=== PATIENT | male | born 1955 | race Caucasian/White ===

== ENCOUNTER 2019-07-25 23:40 | Inpatient (IN) | payer MEDICAID, MEDICARE ==
[~2019-07-25] VITALS: Ht 180.3 cm; Wt 93.9 kg
[2019-07-26] VITALS (7 sets, daily range): BP systolic 112–146
--- NOTE | 2019-07-26 00:10 | NUR ---
Placed in room 6 . Placed on engineering technician parking, blood pressure machine and pulse oximeter. To gown for exam. Side rails up. Report given to ARNOLD SINGH.
--- NOTE | 2019-07-26 00:12 | NUR ---
ER at bedside examining patient.
--- NOTE | 2019-07-26 00:15 | NUR ---
Pt came in via ambulance with a complaint of abdominal pain, chest tightness and vomiting. No other complaints noted. Vital signs stable. Safety precaution observed. Wound on the right lef noted wrapped with bandage. Has history of stroke, hypertension and hyperlipidemia. Will continue to monitor Pt.
--- NOTE | 2019-07-26 00:20 | NUR ---
ALFONSO Pereira at bedside for medical evaluation.
[2019-07-26 00:49] LABS: HEMOGLOBIN 15.5 g/dL (14.0-18.0); MEAN CORPUSCULAR HEMOGLOBIN 30 pg (27-31); MEAN CORPUSCULAR HGB CONC 32 % (32-36); MEAN CORPUSCULAR VOLUME 92 fL (79.0-98.0); PLATELET COUNT (AUTO) 158 K/uL (130-430); RED CELL DISTRIBUTION WIDTH 18.7 % (9.0-15.0); WHITE BLOOD COUNT (AUTO) 12.2 K/uL (4.8-10.8)
[2019-07-26] MEDS ORDERED: NACL 0.9% 1,000 ML IV ONE (00:58)
[2019-07-26] MEDS ORDERED: ONDANSETRON HCL 4 MG/2 ML VIAL IVP ONE (01:00)
[2019-07-26] MEDS ORDERED: MORPHINE 4 MG/ML INJ. SYRINGE IVP ONE (01:00)
[2019-07-26] MEDS ORDERED: DIPHENHYDRAMINE INJ 50 MG/ML VIAL IVP ONE (01:00)
[2019-07-26] MEDS ORDERED: PANTOPRAZOLE SODIUM 40 MG/VIAL (PROTONIX) IVP ONE (01:00)
--- NOTE | 2019-07-26 01:00 | NUR ---
Pt in bed, no acute distress noted. Will continue to monitor Pt.
[2019-07-26 01:12] LABS: CALCIUM 8.3 mg/dL (8.4-11.0); CREATININE 1.25 mg/dL (0.55-1.30); POTASSIUM 5.7 mmol/L (3.5-5.1)
[2019-07-26 01:16] LABS: ATYPICAL LYMPHOCYTES % 0 % (0-0); BAND % (MANUAL) 0 % (0-6); BASOPHILS % (MANUAL) 0 % (0-2); EOSINOPHILS % (MANUAL) 0 % (0-7); LYMPHOCYTES % (MANUAL) 4 % (20-46); MONOCYTES % (MANUAL) 4 % (0-11)
[2019-07-26 01:24] LABS: ALBUMIN 3.4 g/dL (3.4-4.8); TOTAL BILIRUBIN 1.7 mg/dL (0.0-1.0)
[2019-07-26] MEDS ORDERED: ASPIRIN 81 MG TAB.CHEW PO ONE (02:15)
--- NOTE | 2019-07-26 02:42 | NUR ---
To CT Pt stable.
--- NOTE | 2019-07-26 03:00 | NUR ---
Pt in bed, no acute distress noted. Will continue to monitor Pt.
[2019-07-26 03:06] LABS: INR 1.1 (0.80-1.20); PROTHROMBIN TIME 10.9 SECS (9.5-12.5)
[2019-07-26] MEDS ORDERED: GABA-531 PO (04:26)
[2019-07-26] MEDS ORDERED: WARF4TAB2 PO (04:31)
[2019-07-26] MEDS ORDERED: ALLO100T PO (04:31)
[2019-07-26] MEDS ORDERED: SPIR25TA6 PO (04:31)
[2019-07-26] MEDS ORDERED: CARV3.1246 PO (04:31)
[2019-07-26] MEDS ORDERED: LISI10TA5 PO (04:31)
[2019-07-26] MEDS ORDERED: FURO-149 PO (04:31)
[2019-07-26] MEDS ORDERED: SIMV40TA2 PO (04:31)
--- NOTE | 2019-07-26 04:47 | NUR ---
ADMISSION: The patient, ARLETH CARLOS, 63 y/o, M admitted by DR. GOEL WITH THE DIAGNOSIS OF NSTEMI TO ROOM 118 B , was given written information regarding hospital policies, unit procedures and contact persons.
--- NOTE | 2019-07-26 04:50 | NUR ---
Patient will be admitted to care of Dr. Murray. Admitted to telemetry unit. Will go to room 118b. Belongings list completed. Complete and up to date summary report printed. SBAR report to be given at bedside with opportunity for questions.
--- NOTE | 2019-07-26 06:35 | NUR ---
Pt is awake and resting comfortably in bed. All pt's needs were attended to. Fall and safety precautions are in place. Will endorse to day shift nurse.
[2019-07-26] MEDS ORDERED: MORPHINE 2 MG/ML INJ. SYRINGE IVP PRN (07:30)
[2019-07-26] MEDS ORDERED: *LOVENOX 1MG/KG Q12H/PHARMACY XX PRN (07:30)
[2019-07-26] MEDS ORDERED: MORPHINE 4 MG/ML INJ. SYRINGE IVP PRN (07:30)
--- NOTE | 2019-07-26 07:30 | NUR ---
Pt's home medications were given to the Pharmacist. Stickers placed on pt's chart and SBAR. Endorsed to day shift nurse.
--- NOTE | 2019-07-26 08:30 | NUR ---
RN INITIAL NOTES RECEIVED PATIENT IN BED ALERT AWAKE AND NO DISTRESS , PATIENT NO SIGN OF SOB , PATIENT STATED STILL WITH ABDOMINAL DISCOMFORT , PATIENT SEEN AND DISCUSSED PLAN OF CARE BY GI DR , PATIENT OK TO EAT BREAKFAST FOR NOW AND WILL FOLLOW UP WITH DR LAUGHLIN FOR CARDIAC CLEARANCE ONCE CLEARED PATIENT WILL POSSIBLE TO HAVE EGD LATE THIS AFTERNOON PER DR PACE, CHARGE NURSE MADE AWARE, PATIENT MADE AWARE.
--- NOTE | 2019-07-26 08:31 | NUR ---
CONSULTATION PAGED/CALLED Reason for Consultation: [] ABDOMINAL PAIN Person Who was Notified: [] TIANA/DR PACE Consulting Physician: [] DR PACE Level Designer Specialty: [] GI Ordering Physician: [] DR Louann CONTRERAS
--- NOTE | 2019-07-26 08:36 | NUR ---
CONSULTATION PAGED/CALLED Reason for Consultation: [] NSTEMI Person Who was Notified: [] CHETAN/DR LAUGHLIN Consulting Physician: [] DR LAUGHLIN Tuberculosis Specialist Specialty: [] GI Ordering Physician: [] DR Louann CONTRERAS
--- NOTE | 2019-07-26 08:41 | NUR ---
CORRECTION: CARDIOLOGY NOT GI
[2019-07-26] MEDS ORDERED: LISINOPRIL 10 MG TABLET (PRINIVIL) PO SCH (09:00)
[2019-07-26] MEDS ORDERED: SPIRONOLACTONE 25 MG TABLET (ALDACTONE) PO SCH (09:00)
--- NOTE | 2019-07-26 09:31 | NUR ---
EGD PATIENT INFORMED NPO FOR LUNCH POSSIBLE EGD THIS AFTERNOON , PATIENT UNDERSTOOD
[2019-07-26 09:37] LABS: BASOPHILS # (AUTO) 0.1 K/uL (0.0-0.2); BASOPHILS % (AUTO) 0.6 % (0.0-2.0); EOSINOPHILS # (AUTO) 0.1 K/uL (0.0-0.4); EOSINOPHILS % (AUTO) 0.6 % (0.0-4.0); HEMATOCRIT 46.4 % (36-54); LYMPHOCYTES # (AUTO) 0.2 K/uL (1.0-5.5); LYMPHOCYTES % (AUTO) 2.6 % (20.5-51.5); MEAN CORPUSCULAR HEMOGLOBIN 30 pg (27-31); MEAN CORPUSCULAR HGB CONC 32 % (32-36); MEAN CORPUSCULAR VOLUME 92 fL (79.0-98.0); MONOCYTES # (AUTO) 0.3 K/uL (0.0-1.0); MONOCYTES % (AUTO) 3.7 % (1.7-9.3); NEUTROPHILS # (AUTO) 8.7 K/uL (1.8-7.7); NEUTROPHILS % (AUTO) 92.5 % (40.0-70.0); PLATELET COUNT (AUTO) 154 K/uL (130-430); RED BLOOD CELL COUNT(AUTO) 5.05 MIL/uL (4.2-6.2); RED CELL DISTRIBUTION WIDTH 18.9 % (9.0-15.0); WHITE BLOOD COUNT (AUTO) 9.4 K/uL (4.8-10.8)
[2019-07-26 09:56] LABS: ALBUMIN 2.9 g/dL (3.4-4.8); CALCIUM 7.3 mg/dL (8.4-11.0); CREATININE 1.59 mg/dL (0.55-1.30); POTASSIUM 5.6 mmol/L (3.5-5.1); TOTAL BILIRUBIN 1.9 mg/dL (0.0-1.0)
--- NOTE | 2019-07-26 10:12 | NUR ---
CARDIOLOGY /DR PACE PATIENT REFERRED TO DR LAUGHLIN INFORMED THAT EGD IS PLANNED FOR THIS AFTERNOON AFTER HE IS BEING CLEARED FROM CARDIOLOGY AND MD SAID HE WILL SEE THE PATIENT , REPORTED WITH TROPONIN LEVEL , PAGED DR PACE FOR THE CT OF THE ABDOMEN/ PELVIS RESULT , AWAITING FOR THE MD TO CALL BACK
[2019-07-26] MEDS: GABAPENTIN 300 MG CAPSULE PO SCH ×2 (10:36→20:57)
[2019-07-26] MEDS: ASPIRIN 81 MG TAB.CHEW PO SCH (10:37)
[2019-07-26] MEDS: SIMVASTATIN 40 MG TABLET PO SCH (10:37)
[2019-07-26] MEDS: CARVEDILOL 3.125 MG TABLET (COREG) PO SCH ×2 (10:38→20:57)
[2019-07-26] MEDS: FUROSEMIDE 40 MG TABLET PO SCH (10:38)
[2019-07-26] MEDS: metroNIDAZOLE 500 mg/NS 100 ML IV SCH ×3 (10:39→21:26)
[2019-07-26] MEDS: cefTRIAXone 1 GM IVPB PREMIX 50 ML IV SCH (10:40)
[2019-07-26] MEDS: ENOXAPARIN SODIUM 100 MG/ML SYRINGE SUBCUT SCH ×2 (10:45→21:23)
[2019-07-26] MEDS: ALLOPURINOL 100 MG TABLET (ZYLOPRIM) PO SCH (10:50)
--- NOTE | 2019-07-26 10:52 | NUR ---
DR PACE /CT OF THE PELVIS /ABDOMEN RESULT DR PACE RETURNED CALL INFORMED AND READ TO HIM CT OF THE ABDOMEN/PELVIS RESULT AND PER MD WILL CONT WITH IV ATB ORDERED MORE LIKELY PATIENT TO BE TREATED WITH GASTROENTERITIS, INFORMED DR PACE THAT PATIENT IS HIGH RISK FOR ANY SURGERY A TTIS TIME , DR PACE SAID NO EGD FOR THIS PATIENT , INFORMED PATIENT AND AAWRE OF HIS DIAGNOSTIC , NO EGD , CHARGE NURSE MADE AWARE
--- NOTE | 2019-07-26 11:00 | NUR ---
MO TROPONIN DR LAUGHLIN AWARE OF THE MO TROPONIN RESULT AND THE EJECTION FRACTION OF 20- 25% . PATIENT ALREADY ON LOVENOX ORDER BY DR LAUGHLIN
[2019-07-26] MEDS ORDERED: FURO20TA4 PO (11:02)
[2019-07-26] MEDS ORDERED: INSU100V9 SQ (11:02)
--- NOTE | 2019-07-26 12:30 | NUR ---
NPO/ PAGED DR LAUGHLIN FOR INSULIN SLIDING SCALE PAGED DR LAUGHLIN TO VERIFY [PATIENT INSULIN SLIDING SCALE , MD ORDERED BS CHECK BUT NO SLIDING SCALE COVERAGE INFORMED CHARGE NURSE. WAITING FOR MD TO CALL BACK
--- NOTE | 2019-07-26 13:00 | NUR ---
DCPA and SS contact CIGAR HEAD STRINGER met with Pt. at bedside for DCPA and SS contact. Pt. was alert and oriented, was admitted to [facility] for segment myocardial infraction. Pt. supports himself through SSI, he is currently living in his car, in addition to utilizing winter shelters. He was residing at [facility] and his car is parked there. Person to notify is his sister Annalee Wilson who lives in [place] . Pt. garcia [place] [employer] and Medicare Part B only. PCP is Dr. Jones, he has a keycase assembler through [facility] [phone]. He utilizes a walker for mobility and tends to his own ADLs, he reported he also needs a replacement nebulizer pump. Pt. is diabetic and had a stroke a year ago. Pt. reported that he was in a SNF, does not recall the name in [place] approximately 2 months ago, he does not want to go to a SNF again they take everything from your check and I left because it was loud and I couldnt sleep. He prefers to live in his car and in connected to homeless jail and [facility]. CIGAR HEAD STRINGER provided him with homeless resources list for additional info and support. DCP is to return home at previous level of functioning. DCP/CM/SS will remain available as needed.
--- NOTE | 2019-07-26 14:24 | NUR ---
AUT[employer] FINANCE SALES REP DR LAUGHLIN WAS CALLED, RE: ORDERED ACCUCHECK BUT NEEDS BS SS. SPOKE TO OFFICE.
--- NOTE | 2019-07-26 14:25 | NUR ---
ROUNDS PATIENT AMBULATORY AND PAGED DR LAUGHLIN AGAIN FOR SLIDING SCALE OF INSULIN PER PATIENT HE TAKES HUMALOG Addendum: 07/26/19 at 1432 by Kylee Aguirre RN VERIFIED WITH FATIMAH GREGORY PATIENT ALLERGY TO METOPROLOL BUT TAKING COREG , PER COLT PATIENT COREG IS HOME MEDS , PATIENT TAKING IT , NO AR NOTED , PER PATIENT HES BEEN TAKING THIS MEDS FOR A LONG TIME
--- NOTE | 2019-07-26 14:40 | NUR ---
SLIDING SCALE DR LAUGHLIN CALLED BACK AND STATED TO CALL DR GOEL FOR THE SLIDING SCALE COVERAGE ORDER, PAGED DR GOEL WAITNG FOR RETURN CALL
--- NOTE | 2019-07-26 16:15 | NUR ---
ROUNDS PATIENT SITTING IN HIS BED , NO DISTRESS, HE IS TALKING TO SOMEONE ON HIS PHONE DENIES ANY PAIN
--- NOTE | 2019-07-26 16:35 | NUR ---
WOUND EVALUATION: Wound Consult received from Dr. Murray. Thank you, Dr. Murray, for the consult. Patient received in a Baldwin Bed with an Atmo-Air 9000 mattress, awake, alert, and oriented. Patient is able to turn in bed independently. Yobani Score is a 19. Past Medical History: CVA, Diabetes Mellitus, Atrial Fibrillation, Chronic Obstructive Pulmonary Disease, pacemaker, AICD, Cholecystectomy, knee surgery. Recent Labs: WBC 9.4, RBC 5.05, hemoglobin 15.0, hematocrit 46.4, potassium 5.6, BUN 73, creatinine 1.59, GFR 47, glucose 300, calcium 7.3, serum total protein 6.0, albumin 2.9, PTT 25.1. Chronic biologic: Blood culture results 2 in progress. MRSA screen results in progress. Intrinsic factors that delay wound healing: Diabetes Mellitus, Chronic Obstructive Pulmonary Disease, Hypoalbuminemia. Extrinsic factors that delay wound healing: Decreased mobility. Wound Assessment: 1. Left Lower Extremity: Dry skin with hemosiderin staining, cool to touch. No edema. No odor, no drainage. Present on admission. 2. Right Lower Extremity: Dry skin with hemosiderin staining, cool to touch. No edema. No odor, no drainage. Present on admission. Recommend: Cleanse extremities with mild soap and water. Pat dry. Apply Eucerin cream to extremities. Perform site care twice a day. 3. Right lateral mid lower extremity: Chronic wound, present on admission. Wound bed has 100% brown scab. No odor, no drainage. Dry, stable. Measures 0.7 cm x 0.5 cm. 4. Right lateral mid lower extremity, inferior to site 3: Three small chronic wounds, present on admission. Wound beds have 100% brown scabs. No odor, no drainage. Dry, stable. Three grouped wounds measure 1.8 cm x 0.6 cm. Recommend: No dressings needed. Continue to monitor wound sites each shift. Contact wound care nurse if sites open or drain. Also recommend: Encourage and assist patient as needed with repositioning every 2 hours with pillow support and off-load pressure areas with pillows for pressure re-distribution. Offload, elevate and float bilateral heels with pillows. Perform skin care and monitor skin integrity Q shift.
[2019-07-26] MEDS ORDERED: WARFARIN SODIUM 5 MG TABLET PO SCH (18:00)
--- NOTE | 2019-07-26 18:02 | NUR ---
ENDORSEMENT PATIENT WILL CONT PLAN OF CARE, AMBULATES AND COUMADIN STARTED , NO CHEST PAIN Addendum: 07/26/19 at 1858 by Kylee Aguirre RN WILL FOLLOW UP CALL TO DR MANDUJANO TO VERIFY PATIENT SLIDING SCALE FOR HUMALOG ORDER
--- NOTE | 2019-07-26 19:20 | NUR ---
OPENING NOTES Pt is AAOx4, lying in bed. Pt on saline lock on right forearm G22. No complains of pain or discomfort at this time. No signs of acute distress or SOB noted. Encouraged to use call light when needed. Safety precautions in place with 2 side rails up, wheels locked, and bed in lowest level. Call light with pt. Will continue to monitor.
--- NOTE | 2019-07-26 20:15 | NUR ---
SPOKE TO DR. CONTRERAS Spoke to Dr. Contreras regarding pt has no insulin sliding scale and pt states he takes Humalog at home. She asked her last blood glucose and told her it was 174mg/dl. MD said not to give any insulin coverage tonight and she will decide about the insulin coverage tomorrow. Will carry out.
--- NOTE | 2019-07-26 20:26 | NUR ---
ROUNDS All due meds given and pt tolerated well. No complains of pain and no signs of acute distress noted. Safety precautions in place and call light with pt. Will continue to monitor. Addendum: 07/27/19 at 0357 by Keturah Dias RN DISREGARD ENTRY. WRONG TIME.
[2019-07-26] MEDS: EMOLLIENT COMBINATION NO.73 78 GM CREAM..G. TP SCH (20:58)
--- NOTE | 2019-07-26 21:26 | NUR ---
ROUNDS All due meds given and pt tolerated well. No complains of pain and no signs of acute distress noted. Safety precautions in place and call light with pt. Will continue to monitor.
--- NOTE | 2019-07-26 23:30 | NUR ---
ROUNDS Pt is resting in bed with both eyes closed, with visible chest rise and fall with non-labored breathing noted. No signs of acute distress or SOB noted. Safety precautions in place and call light with pt. Will continue to monitor.
[2019-07-27 00:30] VITALS: BP_SYST 116
[2019-07-27] MEDS: ONDANSETRON HCL 4 MG/2 ML VIAL IVP PRN ×4 (01:57→22:23)
--- NOTE | 2019-07-27 02:26 | NUR ---
SPOKE TO DR. CONTRERAS Spoke to Dr. Contreras regarding pt complaining of anxiety and told her pt states he takes Ativan 1mg PO at home. Told her I checked med rec for home meds but it was not entered. Dr. Contreras ordered Ativan 1mg PO one time. Read back order and will carry out.
[2019-07-27] MEDS ORDERED: LORazepam 1 MG TABLET PO ONE (02:30)
[2019-07-27 03:24] VITALS: BP_SYST 130
--- NOTE | 2019-07-27 03:26 | NUR ---
ATIVAN Pt complaining of anxiety and asking for ativan. BP checked and recorded. Ativan 1mg PO one time given. No signs of acute distress noted. Safety precautions in place and call light with pt. Will continue to monitor.
[2019-07-27] MEDS: metroNIDAZOLE 500 mg/NS 100 ML IV SCH ×3 (05:05→21:32)
[2019-07-27 05:54] LABS: INR 1.2 (0.80-1.20); PROTHROMBIN TIME 12.2 SECS (9.5-12.5)
[2019-07-27 06:11] LABS: ALBUMIN 2.5 g/dL (3.4-4.8); CALCIUM 7.2 mg/dL (8.4-11.0); CREATININE 1.43 mg/dL (0.55-1.30); POTASSIUM 4.9 mmol/L (3.5-5.1); THYROID STIMULATING HORMONE 0.73 uIu/mL (0.36-3.74); TOTAL BILIRUBIN 1.1 mg/dL (0.0-1.0)
--- NOTE | 2019-07-27 06:26 | NUR ---
CLOSING NOTES Pt is resting in bed with both eyes closed, with visible chest rise and fall with non-labored breathing noted. No complains of pain at this time. No signs of acute distress or SOB noted. All needs attended throughout the shift. Safety precautions maintained with 2 side rails up, wheels locked, and bed at lowest level. Call light with pt. Will endorse to day shift nurse.
[2019-07-27 06:35] LABS: HEPATITIS A AB, IgM Negative (Negative); HEPATITIS B CORE AB, IgM Negative (Negative); HEPATITIS B SURFACE AG Negative (Negative)
[2019-07-27 06:38] LABS: BASOPHILS % (AUTO) 0.5 % (0.0-2.0); EOSINOPHILS # (AUTO) 0.1 K/uL (0.0-0.4); EOSINOPHILS % (AUTO) 2.4 % (0.0-4.0); HEMATOCRIT 41.4 % (36-54); HEMOGLOBIN 13.4 g/dL (14.0-18.0); LYMPHOCYTES # (AUTO) 0.6 K/uL (1.0-5.5); LYMPHOCYTES % (AUTO) 10.6 % (20.5-51.5); MEAN CORPUSCULAR HEMOGLOBIN 30 pg (27-31); MEAN CORPUSCULAR HGB CONC 32 % (32-36); MEAN CORPUSCULAR VOLUME 93 fL (79.0-98.0); MONOCYTES # (AUTO) 0.3 K/uL (0.0-1.0); MONOCYTES % (AUTO) 6.4 % (1.7-9.3); NEUTROPHILS # (AUTO) 4.2 K/uL (1.8-7.7); NEUTROPHILS % (AUTO) 80.1 % (40.0-70.0); PLATELET COUNT (AUTO) 121 K/uL (130-430); RED BLOOD CELL COUNT(AUTO) 4.43 MIL/uL (4.2-6.2); RED CELL DISTRIBUTION WIDTH 19.4 % (9.0-15.0)
--- NOTE | 2019-07-27 07:13 | NUR ---
SPOKE TO DR. GEORGE Spoke to Dr. George regarding pt's critical lab of 0.117. He said "okay" and no new orders were given.
[2019-07-27 07:28] LABS: WHITE BLOOD COUNT (AUTO) 5.2 K/uL (4.8-10.8)
[2019-07-27 08:42] VITALS: BP_SYST 128
[2019-07-27] MEDS: ASPIRIN 81 MG TAB.CHEW PO SCH (08:48)
[2019-07-27] MEDS: GABAPENTIN 300 MG CAPSULE PO SCH ×2 (08:48→20:30)
[2019-07-27] MEDS: SIMVASTATIN 40 MG TABLET PO SCH (08:48)
[2019-07-27] MEDS: FUROSEMIDE 40 MG TABLET PO SCH (08:48)
[2019-07-27] MEDS: ALLOPURINOL 100 MG TABLET (ZYLOPRIM) PO SCH (08:48)
[2019-07-27] MEDS: CARVEDILOL 3.125 MG TABLET (COREG) PO SCH ×2 (08:48→20:30)
[2019-07-27] MEDS: ENOXAPARIN SODIUM 100 MG/ML SYRINGE SUBCUT SCH ×2 (08:50→20:33)
[2019-07-27] MEDS: PANTOPRAZOLE SODIUM 40 MG/VIAL (PROTONIX) IVP SCH (08:50)
[2019-07-27] MEDS: cefTRIAXone 1 GM IVPB PREMIX 50 ML IV SCH (08:52)
[2019-07-27] MEDS: EMOLLIENT COMBINATION NO.73 78 GM CREAM..G. TP SCH ×2 (09:04→20:29)
[2019-07-27] MEDS: IPRATROPIUM/ALBUTEROL SULFATE 3 ML AMPUL.NEB (DUONEB) INH SCH ×3 (11:10→20:40)
[2019-07-27 12:30] VITALS: BP_SYST 137
[2019-07-27 16:20] VITALS: BP_SYST 133
[2019-07-27] MEDS: WARFARIN SODIUM 7.5 MG TABLET PO SCH (17:28)
[2019-07-27] MEDS ORDERED: WARFARIN SODIUM 7.5 MG TABLET PO ONE (18:00)
--- NOTE | 2019-07-27 18:38 | NUR ---
Patient is sitting in bed watching movie, [employer]. He tolerates his meals without vomiting. Says he does notice nausea. Took two doses of zofran this shift. Patient has even unlabored respirations. Will endorse care to next registered nurse. Palmer Garza RN
--- NOTE | 2019-07-27 19:29 | NUR ---
OPENING NOTES Pt is AAOx4, sitting in bed while watching tv. Pt on saline lock on right forearm G22. No complains of pain or discomfort at this time. No signs of acute distress or SOB noted. Encouraged to use call light when needed. Safety precautions in place with 2 side rails up, wheels locked, and bed in lowest level. Call light with pt. Will continue to monitor.
[2019-07-27 20:28] VITALS: BP_SYST 124
--- NOTE | 2019-07-27 23:21 | NUR ---
SPOKE TO DR. CONTRERAS Spoke to Dr. Contreras regarding pt been asking to shower despite explaining to pt his telemetry. Also told Dr. Contreras about pt's ejection fraction of 15-20%. Dr. Contreras said pt can shower as long as pt will be assisted to prevent falls. Also told Dr. Contreras that pt have been coughing and asking for cough syrup, she ordered Robitussin 200mg/10ml PO every 4 hours PRN. Read back orders and will carry out.
[2019-07-27] MEDS ORDERED: guaiFENesin 200 MG/10 ML UDC PO PRN (23:30)
[2019-07-27] MEDS: guaiFENesin 200 MG/10 ML UDC PO PRN (23:48)
--- NOTE | 2019-07-28 00:10 | NUR ---
SHOWER Pt was assisted to the shower room, pt ambulated with a walker. Pt refused to be assisted inside. Educated on safety precautions and fall, pt verbalized understanding and always talking angrily.
[2019-07-28] MEDS: IPRATROPIUM/ALBUTEROL SULFATE 3 ML AMPUL.NEB (DUONEB) INH SCH ×7 (00:38→23:00)
[2019-07-28 00:45] VITALS: BP_SYST 136
--- NOTE | 2019-07-28 00:47 | NUR ---
BACK IN ROOM Assisted pt back to room via shower chair and assisted back to bed. Pt tolerated well. No complains of pain and no signs of acute distress or SOB noted. Vital signs taken and recorded. Safety precautions in place and call light with pt. Will continue to monitor.
--- NOTE | 2019-07-28 03:26 | NUR ---
ROUNDS Pt is resting in bed with both eyes closed, with visible chest rise and fall with non-labored breathing noted. Pt is easily arousable. No signs of acute distress or SOB noted. No needs at this time. Safety precautions in place and call light with pt. Will continue to monitor.
[2019-07-28] MEDS: guaiFENesin 200 MG/10 ML UDC PO PRN ×2 (04:05→20:26)
--- NOTE | 2019-07-28 05:07 | NUR ---
SPOKE TO DR. CONTRERAS Spoke to Dr. Contreras regarding pt asking for ativan and is angry and anxious at this time. Dr. Contreras ordered Ativan 1mg IVP one time dose. Read back order and will carry out.
[2019-07-28] MEDS ORDERED: LORazepam 2 MG/ML VIAL IVP ONE (05:15)
[2019-07-28 05:19] VITALS: BP_SYST 131
[2019-07-28] MEDS: metroNIDAZOLE 500 mg/NS 100 ML IV SCH ×3 (05:22→22:55)
[2019-07-28 06:28] LABS: INR 1.4 (0.80-1.20); PROTHROMBIN TIME 13.6 SECS (9.5-12.5)
--- NOTE | 2019-07-28 07:25 | NUR ---
Opening Note received bedside SBAR report from shiftman RN, patient resting in bed, respirations even and unlabored, no acute distress noted, patient denies any chest pain or shortness of breath, educated patient on use of call light and asked to call for assistance, patient verbalized understanding, call light in reach, educated patient on use of bed alarm for patient safety, patient refusing bed alarm, bed in low and locked position.
--- NOTE | 2019-07-28 07:30 | NUR ---
Physician Rounds Dr. Us at bedside examining patient.
[2019-07-28 08:00] VITALS: BP_SYST 120
--- NOTE | 2019-07-28 08:35 | NUR ---
Physician Rounds Dr. Jones at bedside examining patient.
[2019-07-28] MEDS: EMOLLIENT COMBINATION NO.73 78 GM CREAM..G. TP SCH ×2 (08:56→20:30)
[2019-07-28] MEDS: cefTRIAXone 1 GM IVPB PREMIX 50 ML IV SCH (08:56)
[2019-07-28] MEDS: PANTOPRAZOLE SODIUM 40 MG/VIAL (PROTONIX) IVP SCH (08:56)
[2019-07-28] MEDS: ENOXAPARIN SODIUM 100 MG/ML SYRINGE SUBCUT SCH ×2 (08:57→20:40)
[2019-07-28] MEDS: SIMVASTATIN 40 MG TABLET PO SCH (08:57)
[2019-07-28] MEDS: CARVEDILOL 3.125 MG TABLET (COREG) PO SCH ×2 (08:57→20:30)
[2019-07-28] MEDS: LORazepam 1 MG TABLET PO PRN ×2 (08:58→22:55)
[2019-07-28] MEDS: FUROSEMIDE 40 MG TABLET PO SCH (08:58)
[2019-07-28] MEDS: GABAPENTIN 300 MG CAPSULE PO SCH ×2 (08:58→20:26)
[2019-07-28] MEDS: ASPIRIN 81 MG TAB.CHEW PO SCH (08:58)
[2019-07-28] MEDS: ALLOPURINOL 100 MG TABLET (ZYLOPRIM) PO SCH (08:58)
--- NOTE | 2019-07-28 10:20 | NUR ---
Called Pharmacy called pharmacy, informed them that patient has orders for bactroban at 0900, informed them that bactroban is not yet available in medication room, per pharmacy they will send over bactroban, will administer as soon as medication is available.
--- NOTE | 2019-07-28 10:58 | NUR ---
RN Rounds patient resting in bed, respirations even and unlabored on room air, no acute distress noted, patient reports anxiety is controlled at this time.
[2019-07-28] MEDS: MUPIROCIN 2% TOPICAL OINTMENT 22 GM NS SCH ×2 (11:42→20:30)
--- NOTE | 2019-07-28 12:20 | NUR ---
RN Rounds patient resting in bed, respirations even and unlabored, patient denies any pain, no acute distress noted.
[2019-07-28 12:47] VITALS: BP_SYST 109
--- NOTE | 2019-07-28 13:05 | NUR ---
Bathroom bed alarm heard, patient attempting to get out of bed, patient did not use call light, patient states "I need to go to the bathroom", assisted patient to bathroom, voided x1, assisted patient back to bed, bed in low and locked position, bed alarm on, call light in reach.
--- NOTE | 2019-07-28 13:45 | NUR ---
Snack patient requesting smoothie, called dietary, smoothie brought in for patient, patient sitting up in bed eating snack, bed in low and locked position, bed alarm on, call light in reach.
--- NOTE | 2019-07-28 14:20 | NUR ---
Snack patient requesting nehemiah melt, called dietary, nehemiah melt brought to patient from dietary, patient sitting up in bed eating, no acute distress noted, patient denies any pain or shortness of breath, O2Sat 93% on room air.
[2019-07-28] MEDS: ONDANSETRON HCL 4 MG/2 ML VIAL IVP PRN (14:32)
--- NOTE | 2019-07-28 14:39 | NUR ---
Case mgt: I faxed SNF orders to [facility] at fax#[phone]--s/w Jessica , assistant case manager at [facility] [phone] (she's covering the weekend). Per Jessica, pt was reluctant to go to SNF--I met w/pt at bedside, explained that MD has ordered physical therapy and continued IV antibiotics. Pt is agreeable to go to SNF but not to the one in [place] ([facility]?) and he asked if he can go to [facility] in [place]. I left message for Jessica re this info. ROGER RN
--- NOTE | 2019-07-28 15:23 | NUR ---
Spoke with Physician spoke with Dr. Jones, informed him that patient has fingerstick blood glucose checks but no sliding scale insulin orders, new medication orders received, verified with telephone read back.
[2019-07-28 16:05] VITALS: BP_SYST 127
--- NOTE | 2019-07-28 16:05 | NUR ---
[place] heel caser Jessica called me [phone]--she is looking for a SNF and is aware pt refuses [facility] in [facility]--Jessica will f/u with our nursing station..ROGER RN
--- NOTE | 2019-07-28 16:40 | NUR ---
Bathroom bed alarm heard, patient attempting to get out of bed, assisted patient to ambulate to the bathroom, patient voided x1, assisted patient back to bed, patient resting in bed, no acute distress noted, provided patient with fresh water, bed alarm on, bed in low and locked position, call light in reach.
[2019-07-28] MEDS: INSULIN REGULAR, HUMAN 100 UNITS/ML, 10 ML VIAL (humuLIN R) SUBCUT PRN ×2 (17:15→20:42)
[2019-07-28] MEDS: WARFARIN SODIUM 7.5 MG TABLET PO SCH (17:16)
--- NOTE | 2019-07-28 18:06 | NUR ---
RN Rounds patient sitting up in bed eating dinner, tolerating well, no acute distress noted, patient reports nausea is controlled, bed in low and locked position, bed alarm on, call light in reach.
--- NOTE | 2019-07-28 18:52 | NUR ---
Discharge Planning spoke with Jessica from [facility], per Jessica she needs orders for nebulizer pump faxed to , per Jessica bed will not be available for tonight, informed Jessica that nebulizer pump orders will be obtained and then faxed, charge histotechnologist aware, will endorse to shift lab technician RN to obtain physician orders.
--- NOTE | 2019-07-28 19:17 | NUR ---
Closing Note bedside SBAR report given to receiving RN, patient resting in bed, respirations even and unlabored on room air, no acute distress noted, patient denies any pain, educated patient on use of call light and asked to call for assistance, patient verbalized understanding, call light in reach, bed in low and locked position, bed alarm on, care endorsed to petroleum transport driver RN.
--- NOTE | 2019-07-28 19:30 | NUR ---
Opening notes Received report. Patient is resting in bed, wanting cough medicine. Will administer. No signs of distress noted. Breathing even and unlabored, with wheezes, but patient refuses breathing treatments. IV patent and intact, no signs of infiltration noted. No other needs. Call light with the patient. Bed locked and in the lowest position. Bed alarm on.
[2019-07-28 20:00] VITALS: BP_SYST 122
[2019-07-28] MEDS: INSULIN GLARGINE 100 UNITS/ML 10 ML VIAL SQ SCH (20:41)
--- NOTE | 2019-07-28 20:45 | NUR ---
Medications Patient angry that he has not received his medications. Due medications given. Patient states he should be receiving 2 capsules of gabapentin and 2 Ativan. Patient yelling angrily. Will inform doctor. Call light with the patient. Patient refused bed alarm at this time. Bed locked and in the lowest position.
--- NOTE | 2019-07-28 22:30 | NUR ---
Spoke to Dr. Nelson and ordered Gabapentin 600 mg BID stating tomorrow. One dose of gabapentin 300 mg to be given now. Also informed MD about nebulizer pump for discharge and stated to input orders.
[2019-07-28] MEDS ORDERED: GABAPENTIN 300 MG CAPSULE PO SCH (22:45)
--- NOTE | 2019-07-28 22:45 | NUR ---
Outside pharmacy Gabapentin not verified by pharmacy. Outside pharmacy not answering phone calls after 4 attempts. Call goes straight to voicemail. Will continue to call pharmacy.
--- NOTE | 2019-07-28 23:15 | NUR ---
Patient moved to 118B Patient moved self to 118B stating "I like this bed, I can't stand being over there." Informed patient due to safety reasons, it would be much more safer and practical for patient to be in A bed which is closer to the bathroom as patient is also unsteady. Patient refuses. Call light with the patient. Bed alarm is on. Bed locked and in the lowest position.
[2019-07-29 00:38] VITALS: BP_SYST 129
[2019-07-29] MEDS ORDERED: ALBUTEROL MDI INHALATION 8 GM INH INH PRN (01:15)
--- NOTE | 2019-07-29 01:24 | NUR ---
Nebulizer pump order faxed to [phone]. Confirmation receipt received.
--- NOTE | 2019-07-29 01:30 | NUR ---
In and out of bed Patient getting out of bed without calling for help. Patient needs attended. Patient still making rude comments and yelling abruptly. Patient needs provided. Call light with the patient. Patient refuses bed alarm on.
[2019-07-29] MEDS: IPRATROPIUM/ALBUTEROL SULFATE 3 ML AMPUL.NEB (DUONEB) INH SCH ×6 (03:00→23:00)
--- NOTE | 2019-07-29 04:52 | NUR ---
Confusion Patient stating Morphine gives him a headache and he is dizzy. Informed patient that he has not received a dose of Morphine in over 27 hours. Patient reoriented and verbalized understanding. Call light with the patient. Safety precautions in place. Patient refusing bed alarm despite education efforts. Will provided more frequent rounding.
--- NOTE | 2019-07-29 05:30 | NUR ---
Notes Asked patient when he fell, did he hit his head? Patient then states, "What? I did not fall." Reoriented patient about the fall he had yesterday. 15 minutes later, patient angry and yelling, "Why am I so disoriented? I want some one to tell me why I am like this. I think it is because of the morphine they gave me, which caused me to fall." Reoriented patient on situation and verbalized understanding, but patient demanding to speak to fast food supervisor on why he is disoriented. fast food supervisor aware and spoke with patient.
[2019-07-29] MEDS: metroNIDAZOLE 500 mg/NS 100 ML IV SCH ×3 (06:01→21:31)
--- NOTE | 2019-07-29 07:15 | NUR ---
Closing notes Patient resting in bed. no signs of distress noted. Patient complains of shortness of breath. Patient placed on oxygen and O2 sat at 94%. Encouraged patient to take deep breaths through his nose. All needs met throughout the shift. Call light with the patient. Bed locked and in the lowest position. Patient refused bed alarm, despite educational efforts. Care endorsed to day shift RN.
--- NOTE | 2019-07-29 07:35 | NUR ---
OPENING NOTE Patient resting in the bed and c/o trouble breathing. O2 sat=91% RA. Applied O2 2L/min via NC. O2 sat=93%. IV intact to RFA, no redness, no swelling. Safety measure maintained. Call light within reached. Bed locked in low position, side rails up. Will continue to monitor.
[2019-07-29 07:45] VITALS: BP_SYST 154
[2019-07-29 07:59] LABS: BASOPHILS % (AUTO) 0.3 % (0.0-2.0); EOSINOPHILS % (AUTO) 0.1 % (0.0-4.0); HEMATOCRIT 45.7 % (36-54); HEMOGLOBIN 14.7 g/dL (14.0-18.0); LYMPHOCYTES # (AUTO) 0.8 K/uL (1.0-5.5); LYMPHOCYTES % (AUTO) 12.2 % (20.5-51.5); MEAN CORPUSCULAR HEMOGLOBIN 30 pg (27-31); MEAN CORPUSCULAR HGB CONC 32 % (32-36); MEAN CORPUSCULAR VOLUME 93 fL (79.0-98.0); MONOCYTES # (AUTO) 0.6 K/uL (0.0-1.0); MONOCYTES % (AUTO) 8.8 % (1.7-9.3); NEUTROPHILS # (AUTO) 4.9 K/uL (1.8-7.7); NEUTROPHILS % (AUTO) 78.6 % (40.0-70.0); PLATELET COUNT (AUTO) 119 K/uL (130-430); RED BLOOD CELL COUNT(AUTO) 4.91 MIL/uL (4.2-6.2); RED CELL DISTRIBUTION WIDTH 18.3 % (9.0-15.0); WHITE BLOOD COUNT (AUTO) 6.3 K/uL (4.8-10.8)
[2019-07-29 08:08] LABS: INR 2.1 (0.80-1.20); PROTHROMBIN TIME 21.1 SECS (9.5-12.5)
[2019-07-29 08:13] LABS: ALBUMIN 3.1 g/dL (3.4-4.8); CREATININE 1.43 mg/dL (0.55-1.30); TOTAL BILIRUBIN 1.2 mg/dL (0.0-1.0)
[2019-07-29] MEDS: EMOLLIENT COMBINATION NO.73 78 GM CREAM..G. TP SCH ×2 (09:50→21:00)
[2019-07-29] MEDS: MUPIROCIN 2% TOPICAL OINTMENT 22 GM NS SCH ×2 (09:51→20:19)
[2019-07-29] MEDS: PANTOPRAZOLE SODIUM 40 MG/VIAL (PROTONIX) IVP SCH (09:51)
[2019-07-29] MEDS: cefTRIAXone 1 GM IVPB PREMIX 50 ML IV SCH (09:51)
[2019-07-29] MEDS: ALLOPURINOL 100 MG TABLET (ZYLOPRIM) PO SCH (09:52)
[2019-07-29] MEDS: SIMVASTATIN 40 MG TABLET PO SCH (09:52)
[2019-07-29] MEDS: ASPIRIN 81 MG TAB.CHEW PO SCH (09:52)
[2019-07-29] MEDS: GABAPENTIN 300 MG CAPSULE PO SCH ×2 (09:53→20:18)
[2019-07-29] MEDS: CARVEDILOL 3.125 MG TABLET (COREG) PO SCH ×2 (09:54→20:19)
[2019-07-29] MEDS: FUROSEMIDE 40 MG TABLET PO SCH (09:54)
[2019-07-29] MEDS: ENOXAPARIN SODIUM 100 MG/ML SYRINGE SUBCUT SCH ×2 (09:56→20:32)
--- NOTE | 2019-07-29 10:02 | NUR ---
SEEN AND EXAMINED BY OLGA PAZ WITH ORDER RECEIVED.
--- NOTE | 2019-07-29 10:19 | NUR ---
RECEIVED THE CALL FROM ALIZA, [employer]ENCE MANAGEMENT CONSULTANT OF INSURANCE, STATED THAT STILL WORKING ON SNF TO ACCEPT THE PATIENT, AND FOLLOW UP THE ORDER OF BREATHING TREATMENT PUMP, WILL CALL HER IF RECEIVED. PHONE#[phone].
--- NOTE | 2019-07-29 11:18 | NUR ---
SEEN AND EXAMINED BY ANIKA LOUIE.
[2019-07-29] MEDS: INSULIN REGULAR, HUMAN 100 UNITS/ML, 10 ML VIAL (humuLIN R) SUBCUT PRN ×2 (11:58→22:24)
--- NOTE | 2019-07-29 11:59 | NUR ---
EE=066 Humulin 4 units give per sliding scale as ordered for VV=637. Patient sitting at the bed and set up the lunch. Continue on O2 2L/min via NC. Skin warm and dry to touch. Safety measure maintained. Call light within reached. Bed locked in low position, side rails up. Continue to monitor.
[2019-07-29 12:00] VITALS: BP_SYST 133
--- NOTE | 2019-07-29 14:35 | NUR ---
ABDOMEN DISTENTION Called Gaston Sandra regarding the patient c/o abdomen distention. Dr. Us with order of KUB STAT. Order read back and okay to Dr. Us.
--- NOTE | 2019-07-29 15:51 | NUR ---
KUB=MILD ILEUS Called and received the call back from Gaston Sandra, reported the KUB result=mild Ileus. Dr. Us with the order of mineral oil 30ml PO BID. Order read back and okay to
[2019-07-29 16:00] VITALS: BP_SYST 128
--- NOTE | 2019-07-29 17:40 | NUR ---
SL=431 No insulin coverage needed per sliding scale for SZ=424.
--- NOTE | 2019-07-29 17:47 | NUR ---
NEBULIZER COMPRESSOR DROPPED OFF TO THE PATIENT AT BEDSIDE FROM INSURANCE.
[2019-07-29] MEDS ORDERED: WARFARIN SODIUM 6 MG TABLET PO SCH (18:00)
--- NOTE | 2019-07-29 18:50 | NUR ---
CLOSING NOTE Patient sitting at the edge of bed and eating his dinner. No acute distress. IV intact, no redness, no swelling, patent. All needs met. Contact isolation maintained. Safety measure maintained. Call light within reached. Will endorse to night nurse.
--- NOTE | 2019-07-29 19:15 | NUR ---
CHANGE OF SHIFT; pt. awake, sitting at the edge of the bed, no complaints noted. observed contact isolation for MRSA nares. instructed pt. to call and use of call light if he needs help.
[2019-07-29 20:00] VITALS: BP_SYST 137
--- NOTE | 2019-07-29 20:00 | NUR ---
NOTES: pt. called and telling me he cannot breathe, does not want Oxygen and breathing treatment, he said he just had one, prn ordered but does not want it either. also his abdomen distended. due mineral oil will be given shortly. VD checked. starts yelling and he knows what he has as far as medications. just listened to him for awhile, does not want to hear anything I will say. call light within reach. observed contact isolation for MRSA nares.
[2019-07-29] MEDS: MINERAL OIL 30 ML UDC PO SCH (20:18)
--- NOTE | 2019-07-29 20:30 | NUR ---
NOTES: due meds given. remain sittiing at the edge of the bed. both lower extremities with skin discoloration. IV lock on rt. forearm.O2 off and removed earlier. on fall risk but does not want bed alarm. 2 siderails up, reminded to call and use call light when help needed. cardiac pattern om 100% paced.
--- NOTE | 2019-07-29 21:00 | NUR ---
NOTES: pt. yelling, upset , he wants a muscle relaxant, informed him will have to call MD. called Dr. Nelson, radiation oncology therapist for DR. Murray, she does not want to order muscle relaxant due to pt. age instead Benadryl 25 mg IV ordered x1,
[2019-07-29] MEDS ORDERED: DIPHENHYDRAMINE INJ 50 MG/ML VIAL IVP SCH (21:30)
--- NOTE | 2019-07-29 22:00 | NUR ---
NOTES: pt. refused legs to be cleaned.
[2019-07-29] MEDS: INSULIN GLARGINE 100 UNITS/ML 10 ML VIAL SQ SCH (22:18)
--- NOTE | 2019-07-29 22:30 | NUR ---
NOTES: pt. up and ambulated to the restroom with walker, stand by assist. complete linen changed by TECHNOLOGY CONSULTANT, changed gown and did his [place] care. IV antibiotic infusing via rt. forearm. still with occ. bout of productive cough. call light within reach. pt. watching tv on and off.
--- NOTE | 2019-07-29 23:04 | NUR ---
NOTES: offered IV Benadryl order but does not want to take it yet and same with Ativan po.
[2019-07-29] MEDS: LORazepam 1 MG TABLET PO PRN (23:58)
--- NOTE | 2019-07-30 | NUR ---
NOTES: pt. stars yelling again and getting upset coz medications he wants was not ordered like Lisinopril/spirolactone/norco). tried to explain to him but would not listen, asked to talk to charge nurse Jaime and did. Ativan po given as pt. request.
[2019-07-30 00:33] VITALS: BP_SYST 129
--- NOTE | 2019-07-30 01:22 | NUR ---
NOTES: pt. still awake, telling me he could not breathe, offer to put back O2 and breathing treatment and he said no, starts yelling on me. brought snacks per pt. request. condition guarded.
[2019-07-30] MEDS: IPRATROPIUM/ALBUTEROL SULFATE 3 ML AMPUL.NEB (DUONEB) INH SCH ×6 (02:18→23:31)
--- NOTE | 2019-07-30 02:30 | NUR ---
229 PT CALLED FOR SOB. REFUSED TX. WAS ABLE TO TALK HIM INTO WEARING 1L 239 PT CALLED AGAIN FOR SOB. REFUSED TX, WANTED RECLINER. Addendum: 07/30/19 at 0340 by Ginny Sam RT Amended: Links added.
--- NOTE | 2019-07-30 02:45 | NUR ---
NOTES: pt. still yells saying he could not breathe, again offered O2 and refused, called RT to give him a breathing treatment and refused as well. pt. called for Rt after a minute and now agreed to have O2 but only 1 liter per nc. remain sitting at the edge of the bed, wants a recliner but no available one. call [facility] within reach.
--- NOTE | 2019-07-30 04:30 | NUR ---
NOTES: pt. able to sleep at short intervals in the chair and went to bed for a little bit. O2 off.
[2019-07-30] MEDS: metroNIDAZOLE 500 mg/NS 100 ML IV SCH ×3 (05:23→21:51)
--- NOTE | 2019-07-30 06:00 | NUR ---
NOTES: pt. already awake, sitting at the edge of the bed, asked to picker / packer his mess. (tissues everywhere/linens on the floor). IV antibiotic almost completed.
[2019-07-30 06:18] LABS: INR 3.6 (0.80-1.20); PROTHROMBIN TIME 35.7 SECS (9.5-12.5)
--- NOTE | 2019-07-30 06:42 | NUR ---
Nutrition Update Yobani Scale 15 noted. Pt admitted for NSTEMI Diet: 2gm Na BMI: 28.9 kg/m2 RD to follow per nutrition care standards.
--- NOTE | 2019-07-30 06:48 | NUR ---
CLOSING NOTES; checked BS 122, no sliding scale coverage. IV site flushed. still on room air, off O2, still coughing at intervals. fall risk precautions. for further care and assistance. been calling frequently. pt. was calling Dr. [facility] thru his cell phone, he already told me he needs to talk to them and will endorse, he got mad when I told him he could not call them directly. call light at bedside.
[2019-07-30 07:05] LABS: BASOPHILS % (AUTO) 0.5 % (0.0-2.0); EOSINOPHILS % (AUTO) 0.9 % (0.0-4.0); HEMATOCRIT 43.2 % (36-54); LYMPHOCYTES # (AUTO) 0.7 K/uL (1.0-5.5); LYMPHOCYTES % (AUTO) 12.8 % (20.5-51.5); MEAN CORPUSCULAR HEMOGLOBIN 30 pg (27-31); MEAN CORPUSCULAR HGB CONC 33 % (32-36); MEAN CORPUSCULAR VOLUME 92 fL (79.0-98.0); MONOCYTES # (AUTO) 0.6 K/uL (0.0-1.0); MONOCYTES % (AUTO) 10.3 % (1.7-9.3); NEUTROPHILS % (AUTO) 75.5 % (40.0-70.0); PLATELET COUNT (AUTO) 109 K/uL (130-430); RED BLOOD CELL COUNT(AUTO) 4.69 MIL/uL (4.2-6.2); WHITE BLOOD COUNT (AUTO) 5.4 K/uL (4.8-10.8)
[2019-07-30 07:12] LABS: ALBUMIN 2.8 g/dL (3.4-4.8); CALCIUM 7.9 mg/dL (8.4-11.0); CREATININE 1.37 mg/dL (0.55-1.30); POTASSIUM 4.9 mmol/L (3.5-5.1); TOTAL BILIRUBIN 0.5 mg/dL (0.0-1.0)
--- NOTE | 2019-07-30 08:00 | NUR ---
RN INITIAL NOTES RECEIVED PATIENT IN BED NOT IN ANY DISTRESS,PATIENT ABLE TO VERBALIZED STATED HE CANT BREATH OFFERED OXYGEN PATIENT STATED NO, CHECKED O2 SAT SATING 94% ROOM AIR, ADVISED TO SIT COMFORTABLY AND ASSUMED SITTING POSITION AT THIS TIME , WILL APPLY EUCERIN LOTION TO BOTH FEET, BREATHING TREATMENT TOLERATED, PATIENT IS VERY DEMANDING BUT ABLE TO REDIRECT BEHAVIOUR.
[2019-07-30 08:15] VITALS: BP_SYST 131
[2019-07-30] MEDS: cefTRIAXone 1 GM IVPB PREMIX 50 ML IV SCH (08:43)
[2019-07-30] MEDS: PANTOPRAZOLE SODIUM 40 MG/VIAL (PROTONIX) IVP SCH (08:44)
[2019-07-30] MEDS: MINERAL OIL 30 ML UDC PO SCH ×2 (08:44→21:49)
[2019-07-30] MEDS: SIMVASTATIN 40 MG TABLET PO SCH (08:45)
[2019-07-30] MEDS: ASPIRIN 81 MG TAB.CHEW PO SCH (08:45)
[2019-07-30] MEDS: ALLOPURINOL 100 MG TABLET (ZYLOPRIM) PO SCH (08:45)
[2019-07-30] MEDS: GABAPENTIN 300 MG CAPSULE PO SCH ×2 (08:45→21:50)
[2019-07-30] MEDS: FUROSEMIDE 40 MG TABLET PO SCH (08:46)
[2019-07-30] MEDS: MUPIROCIN 2% TOPICAL OINTMENT 22 GM NS SCH ×2 (08:47→21:51)
[2019-07-30] MEDS: CARVEDILOL 3.125 MG TABLET (COREG) PO SCH ×2 (08:47→21:50)
[2019-07-30] MEDS: EMOLLIENT COMBINATION NO.73 78 GM CREAM..G. TP SCH ×2 (08:49→21:51)
[2019-07-30] MEDS: LORazepam 1 MG TABLET PO PRN (09:00)
[2019-07-30] MEDS: ENOXAPARIN SODIUM 100 MG/ML SYRINGE SUBCUT SCH ×2 (09:46→21:58)
--- NOTE | 2019-07-30 10:00 | NUR ---
ROUNDS PATIENT SLEEPING A THIS TIME , ATIVAN GIVEN AND SEEN DISCUSSED PATIENT CONDITION WITH DR GOEL , WILL CONTINUE PLAN OF CARE , DISCUSSED WITH MD PATIENT REFUSED OXYGEN BUT SATING 94 AND VERBALIZED HE CANT BREATH
--- NOTE | 2019-07-30 12:00 | NUR ---
FINALLY AWAKE PATIENT FINALLY AWAKE AND SAID HE DID NOT LIKE TO WALK WITH THE PHYSICAL THERAPIST , PATIENT CONVERSAT AND BARELY FINISHED HIS LUNCH , WILL RECHECK BS THIS PM THEN ENCOURAGE PATIENT TO EAT, INFORMED PATIENT HE WILL BE NPO PMN FOR THE SMALL BOWEL FOLLOW THRU IN AM
--- NOTE | 2019-07-30 12:24 | NUR ---
DR PAINTING GI DR PAINTING CAME IN INFORMED PATIENT DID NOT HAVE HIS SMALL BOWEL FOLLOW THROUGH TODAY PATIENT WAS NOT NPO PMN , WILL DO IT AM
[2019-07-30] MEDS: INSULIN REGULAR, HUMAN 100 UNITS/ML, 10 ML VIAL (humuLIN R) SUBCUT PRN ×3 (12:38→22:02)
--- NOTE | 2019-07-30 12:40 | NUR ---
SLEEPING/DID NOT EAT PATIENT INSULIN NOT EAT , SLEEPING D/T ATIVAN WAS GIVEN EARLIER, AWAKEN BUT PATIENT JUST OPENS EYES AND WAVED HIS HAND , INFORMED HE NEEDS TO EAT BUT PATIENT WENT BACK TO SLEEP , SATING 96% WITH 02 @ 2 L/MIN
[2019-07-30 12:45] VITALS: BP_SYST 130
--- NOTE | 2019-07-30 12:55 | NUR ---
Dietitian Recommendations *Recommend [facility] Cardiac diet. Please see Nutritional Assessment for details. DOTTIE, WERNER
--- NOTE | 2019-07-30 15:00 | NUR ---
REFUSED TO GO TO SNF PATIENT EXPLAINED THAT HE IS ACCEPTED TO SNF IN [place] AND PATIENT SAID "HELL NO IM NOT GOING " INFORMED DECATING MACHINE OPERATOR PATIENT THAT PATIENT WILL HAVE A SMAL BOWEL FOLLOW THRU IN AM, CHARGE NURSE NOTIFIED , ADDITIONAL PATIENT WALKED WITH PHYSICAL THERAPIST FROM BED TOWARDS THE DOOR AND VICE VERSA
[2019-07-30 16:09] VITALS: BP_SYST 119
--- NOTE | 2019-07-30 19:02 | NUR ---
ENDORSEEMNT WILL ENDORSE TO NEXT SHIFT CONT CARE , TO ADVISED NPO PMN FOR SMALL BOWEL FOLLOW THRU IN AM, PATIENT IS AWARE AND WITH EPISODES OF NON COMPLIANCE AND HE REFUSED TO GO TO SNF Addendum: 07/30/19 at 1923 by Kylee Aguirre RN ENDORSED TO SAMANTHA BRANTLEY ,PATIENT SITTING IN THE BED , VERBAL AND NOT IN ANY DISTRESS
[2019-07-30 21:00] VITALS: BP_SYST 132
--- NOTE | 2019-07-30 21:12 | NUR ---
ROBITUSSIN 200 MG 10 ML PO GIVEN FOR COUGH CONTINUE TO MONITOR .
[2019-07-30] MEDS: guaiFENesin 200 MG/10 ML UDC PO PRN (21:49)
[2019-07-30] MEDS: INSULIN GLARGINE 100 UNITS/ML 10 ML VIAL SQ SCH (22:01)
--- NOTE | 2019-07-30 23:41 | NUR ---
NPO STATUS THIS MN PATIENT ALERT & AWARE , FOR PROCEDURE .
--- NOTE | 2019-07-30 23:44 | NUR ---
MASK APPLIED PATIENT OUT OF ROOM IN WHEEL CHAIR REQUESTING TO AMBULATE / .
--- NOTE | 2019-07-31 00:35 | NUR ---
URINE COLLECTED & SENT TO LAB .
[2019-07-31 01:05] LABS: BILIRUBIN,URINE NEGATIVE (NEGATIVE); BLOOD, URINE NEGATIVE (NEGATIVE); CLARITY/URINE CLEAR (CLEAR); COLOR,URINE YELLOW (YELLOW); GLUCOSE,URINE NEGATIVE (NEGATIVE); KETONES,URINE NEGATIVE (NEGATIVE); LEUKOCYTE ESTERASE ,URINE NEGATIVE (NEGATIVE); NITRITE, URINE NEGATIVE (NEGATIVE); PH,URINE 5.5 (5.0-8.0); PROTEIN URINE TRACE (NEGATIVE); UROBILINOGEN,URINE 0.2 (0.2-1.0)
[2019-07-31] MEDS: IPRATROPIUM/ALBUTEROL SULFATE 3 ML AMPUL.NEB (DUONEB) INH SCH ×6 (03:00→23:00)
--- NOTE | 2019-07-31 04:53 | NUR ---
PATIENT AGITATED WANTING REQUESTING ATIVAN IVP .
--- NOTE | 2019-07-31 04:54 | NUR ---
PHONED PAGED DR MANASA BUSTOS D/T PATIENT AGITATION YELLING OUT ANXIETY .
[2019-07-31] MEDS: metroNIDAZOLE 500 mg/NS 100 ML IV SCH ×3 (05:36→22:36)
--- NOTE | 2019-07-31 08:00 | NUR ---
RN INITIAL NOTES RECIEVED PATIENT IN BED ANXIUOSLY ANGRY HE WANTS HIS ATIVAN BUT WAS NOT GIVEN LAST NIGHT , MAINTAINED NPO ,SITTING IN HIS BED , VERBAL , STILL WITH ABDOMINAL DISTENTION
[2019-07-31 09:00] VITALS: BP_SYST 143
[2019-07-31] MEDS: EMOLLIENT COMBINATION NO.73 78 GM CREAM..G. TP SCH ×2 (09:00→20:54)
[2019-07-31] MEDS: MINERAL OIL 30 ML UDC PO SCH ×2 (09:00→20:53)
[2019-07-31] MEDS: MUPIROCIN 2% TOPICAL OINTMENT 22 GM NS SCH ×2 (09:00→20:55)
[2019-07-31] MEDS: cefTRIAXone 1 GM IVPB PREMIX 50 ML IV SCH (09:00)
[2019-07-31] MEDS: PANTOPRAZOLE SODIUM 40 MG/VIAL (PROTONIX) IVP SCH (09:00)
[2019-07-31] MEDS: ENOXAPARIN SODIUM 100 MG/ML SYRINGE SUBCUT SCH ×2 (09:00→20:46)
[2019-07-31] MEDS: CARVEDILOL 3.125 MG TABLET (COREG) PO SCH ×2 (09:00→20:54)
[2019-07-31] MEDS: FUROSEMIDE 40 MG TABLET PO SCH ×2 (09:00→11:32)
[2019-07-31] MEDS: SIMVASTATIN 40 MG TABLET PO SCH (09:00)
[2019-07-31] MEDS: ASPIRIN 81 MG TAB.CHEW PO SCH (09:00)
[2019-07-31] MEDS: GABAPENTIN 300 MG CAPSULE PO SCH ×2 (09:00→20:54)
[2019-07-31] MEDS: ALLOPURINOL 100 MG TABLET (ZYLOPRIM) PO SCH (09:00)
--- NOTE | 2019-07-31 09:30 | NUR ---
PATIENT SEEN BY DR CALHOUN AND INFORMED SMALL AMOUNT OF URINE , INFOREMED DR GOEL PATIENT REFUSED TO BE DC TO SNF AND TO FOLLOW UP WITH [facility] , LEFT MESSAGE WITH [employer] [facility] TO FOLLOW UP DC , CHARGE NURSE MADE AWARE
[2019-07-31] MEDS ORDERED: BARIUM SULFATE 135 ML SUSP.RECON (E-Z-HD) PO ONE (10:16)
--- NOTE | 2019-07-31 10:30 | NUR ---
TAKEN TO XRAY PATIENT TAKEN FOR SMALL BOWEL FOLLOW THRU
--- NOTE | 2019-07-31 11:10 | NUR ---
P.T. NOTES UNABLE TO SEE PATIENT AT THIS TIME DUE TO PATIENT BEING DOWN TO X-RAY.
[2019-07-31 12:10] VITALS: BP_SYST 157
--- NOTE | 2019-07-31 14:30 | NUR ---
CRITICAL PT/INR CALL FROM LAB PATIENT CRITICAL PT/INR, INFORMED PHARMACIST AND NO COUMADIN TODAY . WILL REPEAT LABS IN AM
[2019-07-31 15:44] LABS: PROTHROMBIN TIME 37.4 SECS (9.5-12.5)
[2019-07-31 15:45] LABS: INR 3.8 (0.80-1.20)
--- NOTE | 2019-07-31 15:46 | NUR ---
Discharge Planning Received discharge to SNF order. Spoke with Remigio LUO who stated she spoke with Jeff LUO and SNF stay arranged at [facility] in [place]. THREAD SINGER met with patient at bedside. Patient is alert and oriented and homeless. He lives in his car. Patient stated he will not agree to go to [facility] as it is too far away. He requests [facility]. Remigio LUO relayed this information to Gaviota Aguilar CM, p [phone] f [phone]. She will try [facility].
--- NOTE | 2019-07-31 16:00 | NUR ---
REFUSED TO BE DC TO SNF PATIENT INFORMED HE HAS A D/C TO SNF PATIENT REFUSED TO GO TO SNF AND STATED HE WANTS TO TALK TO [employer] Addendum: 07/31/19 at 1630 by Kylee Aguirre RN PATIENT INFORMED THAT HE WILL BE DC TO [facility] , PATIENT STATED HE IS JUST WAITING FOR THE [employer] TO GO FOR OK TO [facility] . FINANCING ANALYST MADE AWARE
[2019-07-31 16:05] VITALS: BP_SYST 148
[2019-07-31] MEDS: INSULIN REGULAR, HUMAN 100 UNITS/ML, 10 ML VIAL (humuLIN R) SUBCUT PRN ×2 (17:24→20:42)
--- NOTE | 2019-07-31 17:39 | NUR ---
[facility] CALLED AND SAID PATIENT IS ACCEPTED TO [facility] IN [place] , ANNE HERNANDEZ TO TALK TO THE PATIENT IST BEFORE SETTING UP DC , BEC PATIENT SAID NO IF THAT FAR IN [place], MARY SAID SHE WILL CALL THE PATIENT AND WILL CALL ME BACK
--- NOTE | 2019-07-31 18:34 | NUR ---
ENDORSEMENT PATIENT WILL CONT WITH PLAN OF ARE , STILL HERE AFTER SPEAKING WITH NGA LUO , HE DONT WANT TO GO TO [place] , SHABBIR LUO DID NOT CALL BACK , SO PATIENT STILL FOR DC IN AM , WILL CONT RESP CARE AND MONITOR BREATHING PATTERN , PATIENT WAS SEEN BY DR PACE , WILL CONT CARE . SMALL BOWEL FOLLOW THRU TOLERATED THIS 4PM AND STILL WITH ABDOMINAL DISTENTION
[2019-07-31 19:20] VITALS: BP_SYST 131
--- NOTE | 2019-07-31 19:20 | NUR ---
INITIAL NOTES PATIENT IS SITTING ON THE EDGE OF THE BED AND STABLE. NO S/S OF RESPIRATORY DISTRESS NOTED. PATIENT EDUCATED ON SAFETY AND SITTING/LAYING ON THE BED OR SITTING ON THE CHAIR. PATIENT REFUSED. PATIENT REFUSED OXYGEN AT THIS TIME. PATIENT REFUSED BED ALARM, DESPITE EDUCATIONAL EFFORTS. BED IS LOCKED AND AT THE LOWEST POSITION. FALL, SAFETY, ASPIRATION, AND RESPIRATORY PRECAUTIONS WILL BE PLACE THROUGHOUT THE SHIFT. Addendum: 08/01/19 at 0223 by Carisa Ortiz RN PLAN OF CARE WAS DISCUSSED WITH PATIENT AT THIS TIME. PATIENT SUCCESSFULLY DEMONSTRATES USAGE OF CALL LIGHT AT THIS TIME.
[2019-07-31] MEDS: LORazepam 1 MG TABLET PO PRN (20:00)
[2019-07-31] MEDS: INSULIN GLARGINE 100 UNITS/ML 10 ML VIAL SQ SCH (20:45)
--- NOTE | 2019-07-31 21:30 | NUR ---
PATIENT REQUESTED PSYCH CONSULT. PATIENT STATES HE HAS DEPRESSION. PATIENT DENIES ANY THOUGHT OF HARMING HIMSELF OR OTHERS. WILL PAGE DOCTOR FOR CONSULT. PATIENT ALSO COMPLAINED OF PAIN AND REFUSED MORPHINE. PATIENT REQUESTED NORCO. WILL PAGE CONSULT
--- NOTE | 2019-07-31 21:52 | NUR ---
Wendy Nelson s/w Yue
[2019-07-31] MEDS ORDERED: HYDROcodone/ACETAMIN 5-325 MG TAB (NORCO/ VICODIN) PO ONE (22:30)
--- NOTE | 2019-07-31 22:35 | NUR ---
DR. CONTRERAS PAGED BACK. ORDERS RECEIVED AND WILL FOLLOW THROUGH.
[2019-07-31] MEDS: guaiFENesin 200 MG/10 ML UDC PO PRN (22:48)
--- NOTE | 2019-07-31 23:20 | NUR ---
PATIENT THREATENED TO LEAVE AMA. EDUCATED PATIENT ON IMPORTANCE OF CARE. PATIENT STATES HE CANNOT BREATH WELL. SPO2 IS 96% ON RA WITH WHEEZING. OFFERED OXYGEN AND BREATHING TREATMENT. PATIENT REFUSED. PATIENT IS GETTING AGITATED, RAISING HIS VOICE, AND STANDING UP. CHARGE NURSE, SAMANTHA PETERSEN. CALLED TO THE BEDSIDE TO TALK WITH PATIENT.
--- NOTE | 2019-08-01 00:59 | NUR ---
Called Dr Nelson. Patient has congestion in his lungs and is complaining of SOB; however, refuses breathing treatment. Patient states that SOB is caused by "fluid built up in my stomach and bloating". Patient also states that he normally takes lasix and spironolactone for fluid build up. Patient stated that he normally gets Lasix 40mg BID, and he has not been receiving his night time dose. Currently, the lasix 40mg po is scheduled for q daily. Dr Nelson stated to give Lasix 40mg PO one time dose now. Dr Nelson also ordered Mucinex one time dose to be given now. Patient also complaining that he takes his ativan more frequently, but is unable to get another dose. Dr Nelson ordered Ativan 1mg PO one time dose now.
[2019-08-01] MEDS ORDERED: FUROSEMIDE 40 MG TABLET PO ONE (01:00)
[2019-08-01] MEDS ORDERED: LORazepam 1 MG TABLET PO ONE (01:00)
[2019-08-01] MEDS ORDERED: guaiFENesin ER 600 MG TAB PO ONE (01:00)
--- NOTE | 2019-08-01 01:03 | NUR ---
called by patient to come to his room. He has been threatening to leave AMA if his demands are not met. He is now telling me that he is unable to breathe because he is bloated, and he fears that he is "blocked" and has cancer like his father. He wants to be transferred to ICU or [facility] because he can't breathe. Patient has audible wheezing /raspy respirations. He does not have O2 on, but when offered, he refused and Yelled at me that he was not refusing. He states that he has had regular breathing treatments, but by e-MAR has not had a treatment since 1454. He is anxious and expressing frustration/anger that his medications were taken away on admit and put in pharmacy and that he has not been given his regular meds. Med reconciliation was verified and all were continued. However, he is now stating that the Lasix is not enough, that he has only voided the 200 ml that is currently in his urinal. Breath sounds are mostly wheezing, as opposed to rales. He now consents to a breathing treatment, RT called. called for additional Lasix and Muccomyst to help with secretions.
[2019-08-01] MEDS: ALBUTEROL SULFATE 0.083% 2.5 MG/3 ML VIAL.NEB INH PRN (01:07)
--- NOTE | 2019-08-01 01:31 | NUR ---
GAVE ATIVAN AT THIS TIME. PATIENT IS STILL AGITATED. EDUCATED PATIENT AND REORIENTED. PATIENT IS OTHERWISE STABLE. NO S/S OF RESPIRATORY DISTRESS. CALL LIGHT IN REACH. BED IS LOCKED AND AT THE LOWEST POSITION.
--- NOTE | 2019-08-01 02:04 | NUR ---
CONSULTATION PAGED REASON FOR CONSULTATION: Depression WAS CONSULT CALLED? Y PERSON WHO WAS NOTIFIED: Basilia CONSULTING PHYSICIAN: Dr. Hebert AVIONICS INSTALLER PHONE NUMBER: [phone] REQUESTING PHYSICIAN: Dr. Nelson Face Sheet was faxed to [phone]
[2019-08-01 02:09] VITALS: BP_SYST 144
[2019-08-01] MEDS: IPRATROPIUM/ALBUTEROL SULFATE 3 ML AMPUL.NEB (DUONEB) INH SCH ×4 (02:43→23:36)
--- NOTE | 2019-08-01 03:31 | NUR ---
PATIENT IS SLEEPING AT THIS TIME. NO S/S OF RESPIRATORY DISTRESS NOTED. CALL LIGHT IN REACH. BED IS LOCKED AND AT THE LOWEST POSITION.
--- NOTE | 2019-08-01 05:00 | NUR ---
PATIENT AMBULATED TO THE NURSING STATION AT THIS TIME. PATIENT IS CONFUSED. ASSISTED PATIENT BACK TO BED. EDUCATED AND REORIENTED PATIENT. PATIENT IS STABLE. NO S/S OF RESPIRATORY DISTRESS NOTED. CALL LIGHT IN REACH. BED IS LOCKED, AND AT THE LOWEST POSITION. PATIENT REFUSED BED ALARM.
[2019-08-01] MEDS: metroNIDAZOLE 500 mg/NS 100 ML IV SCH ×3 (06:14→23:01)
--- NOTE | 2019-08-01 07:03 | NUR ---
CLOSING NOTES PATIENT IS STABLE AND IN BED. PATIENT IS WHEEZING. PATIENT REFUSED OXYGEN AND BREATHING TREATMENT AT THIS TIME, DESPITE EDUCATIONAL EFFORTS. CALL LIGHT IN REACH. BED IS LOCKED AND AT THE LOWEST POSITION. PATIENT REFUSED BED ALARM. PATIENT EDUCATED ABOUT FALL, SAFETY, ASPIRATION, AND RESPIRATORY PRECAUTIONS THROUGHOUT THE SHIFT. PATIENT HAD POOR CONCENTRATION. WILL CONTINUE TO MONITOR UNTIL REPORT IS GIVEN TO AM NURSE BY BEDSIDE.
--- NOTE | 2019-08-01 07:20 | NUR ---
AM ROUNDS: PATIENT SITTING ON THE BED. RECEIVED REPORT FROM NIGHT NURSE MILO.INSTRUCTED PATIENT TO USE CALL LIGHT FOR ASSISTANCE. BED LOCKED AT LOWEST POSITION. BED ALARM ON. NO ACUTE DISTRESS. BILATERAL LOWER EXTREMITIES WITH DARK DISCOLORATION.CONDITION GUARDED.
[2019-08-01] MEDS: ASPIRIN 81 MG TAB.CHEW PO SCH (09:00)
--- NOTE | 2019-08-01 09:00 | NUR ---
Med Pass: Due po meds given. No adverse reactions noted.
[2019-08-01 09:12] VITALS: BP_SYST 144
[2019-08-01 09:35] LABS: INR 3.1 (0.80-1.20)
[2019-08-01 09:56] LABS: PROTHROMBIN TIME 30.4 SECS (9.5-12.5)
[2019-08-01 09:57] VITALS: BP_SYST 142
[2019-08-01] MEDS: cefTRIAXone 1 GM IVPB PREMIX 50 ML IV SCH (11:40)
--- NOTE | 2019-08-01 11:42 | NUR ---
Blood Sugar: Blood sugar taken,no insulin coverage needed this time.
[2019-08-01] MEDS: EMOLLIENT COMBINATION NO.73 78 GM CREAM..G. TP SCH ×2 (11:44→23:02)
[2019-08-01] MEDS: MUPIROCIN 2% TOPICAL OINTMENT 22 GM NS SCH ×2 (11:44→23:02)
[2019-08-01] MEDS: PANTOPRAZOLE SODIUM 40 MG/VIAL (PROTONIX) IVP SCH (11:46)
[2019-08-01] MEDS: CARVEDILOL 3.125 MG TABLET (COREG) PO SCH ×2 (11:47→22:54)
[2019-08-01] MEDS: MINERAL OIL 30 ML UDC PO SCH ×2 (11:48→22:53)
[2019-08-01] MEDS: GABAPENTIN 300 MG CAPSULE PO SCH ×2 (11:48→22:53)
[2019-08-01] MEDS: SIMVASTATIN 40 MG TABLET PO SCH (11:49)
[2019-08-01] MEDS: ALLOPURINOL 100 MG TABLET (ZYLOPRIM) PO SCH (11:50)
--- NOTE | 2019-08-01 12:06 | NUR ---
Discharge Planning: [facility] spoke to Gaviota at [facility] ([phone]) Eulalia pena. Per Gaviota Te[facility] in [place] the only facility accepting. Addendum: 08/01/19 at 1217 by Remigio Gilmore RN >> The patient refused going to [facility]. -- Gaviota made aware, she will look for other facility close to [facility]. Addendum: 08/01/19 at 1614 by Remigio Gilmore RN >> Call from Gaviota: she is contacting [facility] [place] and [facility] and is pending their decision to accept. She will call nursing unit with accepting facility and to give instruction for the transfer: room assignment and ambulance picker machine operator time. -- SAMANTHA witt aware.
[2019-08-01 12:44] VITALS: BP_SYST 146
[2019-08-01] MEDS ORDERED: FUROSEMIDE 40 MG/4 ML VIAL IVP ONE (14:30)
--- NOTE | 2019-08-01 14:30 | NUR ---
RN ROUNDS: SITTING ON THE BED. NO ACUTE DISTRESS.
--- NOTE | 2019-08-01 16:00 | NUR ---
RN ROUNDS: NOT IN ANY DISTRESS. CONTINUE TO MONITOR.
--- NOTE | 2019-08-01 17:17 | NUR ---
Blood Sugar: Blood sugar taken,with insulin coverage given per sliding scale. No problem.
[2019-08-01] MEDS: INSULIN REGULAR, HUMAN 100 UNITS/ML, 10 ML VIAL (humuLIN R) SUBCUT PRN (17:18)
--- NOTE | 2019-08-01 18:32 | NUR ---
Closing Notes: Patient resting this time. Ate dinner.Needy patient. No acute distress. Call light with in reach. Bed locked at lowest position.Bed alarm on.Maintained contact isolation precaution
--- NOTE | 2019-08-01 19:55 | NUR ---
Initial note: Received report from eric RN. Patient is awake, sitting up at edge of bed. No acute distress. Tolerating room air. IV site to right forearm is patent and benign, saline locked. Call light is with patient. Patient refused bed alarm despite education. All other safety and fall precautions in place. Contact isolation in place for positive MRSA nares. Will continue with plan of care.
[2019-08-01 20:00] VITALS: BP_SYST 139
--- NOTE | 2019-08-01 21:44 | NUR ---
Shower: Patient requested to take a shower. IV site was wrapped by this RN. Patient ambulated using walker and was escorted by this RN to the shower room. Tolerated ambulation well. Patient took a shower and properly used the call light as instructed by this RN to indicate he was finished. Patient was taken back to his room via wheelchair for patient's safety; a large puddle had formed outside the shower room. Safety, fall, contact iso precautions in place. Patient still refused bed alarm despite education. Will continue monitoring.
--- NOTE | 2019-08-01 22:42 | NUR ---
Blood sugar: Patient's blood sugar is 112. Lantus 20 units scheduled for HS administered subcutaneously as ordered. Call light with patient. Will continue to monitor.
[2019-08-01] MEDS: INSULIN GLARGINE 100 UNITS/ML 10 ML VIAL SQ SCH (23:00)
[2019-08-01] MEDS: LORazepam 1 MG TABLET PO PRN (23:03)
--- NOTE | 2019-08-01 23:05 | NUR ---
Anxiety: Patient reported feeling anxious. Ativan 0.5 MG PO administered as indicated. Call light is with patient. Patient still refused bed alarm despite education. All other precautions in place. Will continue monitoring. Addendum: 08/02/19 at 0359 by Ever Wilcox RN Correction: Ativan 1 MG PO was administered, not 0.5 MG PO.
[2019-08-02 01:39] VITALS: BP_SYST 143
--- NOTE | 2019-08-02 02:28 | NUR ---
Rounds: Patient is sleeping. No acute distress. Tolerating room air. Even and unlabored breathing. Call light with patient. Will continue to monitor.
[2019-08-02] MEDS: IPRATROPIUM/ALBUTEROL SULFATE 3 ML AMPUL.NEB (DUONEB) INH SCH ×6 (03:50→23:00)
--- NOTE | 2019-08-02 04:25 | NUR ---
Rounds: Patient is resting in bed, no acute distress. Even, unlabored respirations on room air. Call light with patient. Will continue to monitor.
[2019-08-02] MEDS: metroNIDAZOLE 500 mg/NS 100 ML IV SCH ×3 (06:31→21:14)
--- NOTE | 2019-08-02 06:46 | NUR ---
Closing note: Patient is sleeping in bed, no acute distress. Tolerating room air. IV antibiotics currently infusing, no infiltration noted. Blood sugar this AM was 85, sliding scale insulin not indicated. All needs met. Safety, fall, contact isolation precautions observed. Hourly rounding performed throughout shift. Will endorse care to dayshift RN.
--- NOTE | 2019-08-02 07:51 | NUR ---
Initial notes- In bed, drowsy. having breathing treatment at this time. Denies any pain at this time, call light within reach, refuses bed alarm. enc to call for help as needed.
[2019-08-02 08:00] VITALS: BP_SYST 129
[2019-08-02] MEDS: PANTOPRAZOLE SODIUM 40 MG/VIAL (PROTONIX) IVP SCH (08:19)
[2019-08-02] MEDS: GABAPENTIN 300 MG CAPSULE PO SCH ×2 (08:19→20:20)
[2019-08-02] MEDS: FUROSEMIDE 40 MG TABLET PO SCH (08:20)
[2019-08-02] MEDS: ASPIRIN 81 MG TAB.CHEW PO SCH (08:20)
[2019-08-02] MEDS: CARVEDILOL 3.125 MG TABLET (COREG) PO SCH ×2 (08:21→20:20)
[2019-08-02] MEDS: EMOLLIENT COMBINATION NO.73 78 GM CREAM..G. TP SCH ×2 (08:21→21:00)
[2019-08-02] MEDS: SIMVASTATIN 40 MG TABLET PO SCH (08:21)
[2019-08-02] MEDS: ALLOPURINOL 100 MG TABLET (ZYLOPRIM) PO SCH (08:21)
[2019-08-02] MEDS: MINERAL OIL 30 ML UDC PO SCH ×3 (08:21→20:27)
--- NOTE | 2019-08-02 08:30 | NUR ---
Notes- Pt is sitting at the edge of the bed and eating breakfast. Pt yells to nurses everytime he needs something, Does not listen to the nurses.
--- NOTE | 2019-08-02 08:40 | NUR ---
NOTES- PT IS VERY UPSET AND WANTS TO TALK TO THE CHARGE NURSE. PT STATED THAT HE WANTS TO CHANGE HIS DOCTOR. INFORMED CHARGE NURSE.
--- NOTE | 2019-08-02 09:00 | NUR ---
chargeback specialist and manuel aguirre is talking to the patient at this time.
--- NOTE | 2019-08-02 09:43 | NUR ---
per charge nurse, he spoke to Dr. George about patient's concern that his left leg is more red and more swollen. per MD he will look at it.
[2019-08-02] MEDS ORDERED: FUROSEMIDE 40 MG/4 ML VIAL IVP ONE (09:45)
[2019-08-02 09:58] LABS: INR 2.4 (0.80-1.20); PROTHROMBIN TIME 23.6 SECS (9.5-12.5)
[2019-08-02] MEDS: cefTRIAXone 1 GM IVPB PREMIX 50 ML IV SCH (11:11)
[2019-08-02] MEDS: INSULIN REGULAR, HUMAN 100 UNITS/ML, 10 ML VIAL (humuLIN R) SUBCUT PRN ×3 (11:24→21:14)
--- NOTE | 2019-08-02 11:30 | NUR ---
Resting in bed, urinal emptied. Blood sugar is 205. will cover with insulin. Pt wants tuna sandwich, called kitchen and requested.
[2019-08-02 12:30] VITALS: BP_SYST 125
--- NOTE | 2019-08-02 14:01 | NUR ---
Notes- Talking on the phone, urinal emptied. no distress noted.
--- NOTE | 2019-08-02 14:50 | NUR ---
Still no Flagyl IVPB. Pharmacist informed.
--- NOTE | 2019-08-02 15:30 | NUR ---
Flagyl given. In bed, talking on the phone. Pt wants diet soda. urinal emptied at this time.
[2019-08-02 16:01] VITALS: BP_SYST 140
--- NOTE | 2019-08-02 16:17 | NUR ---
PT WANTED TO TALK TO CHARGE NURSE. WENT IN PT"S ROOM .PT IS CONCERN FOR HIS RT LEG REDNESS AND SWELLING.PT STATED I WANTED TO HAVE ULTRASOUND FOR MY LEG. DR LAUGHLIN HERE INFORMED ABOUT PT'S CONCERN. DR LAUGHLIN STATED PT IS ALREADY ON COUMADIN. PRIMARY NURSE SUN MADE AWARE,WILL INFORM PT
--- NOTE | 2019-08-02 16:47 | NUR ---
Met with Pt. to inform him of acceptance to [facility] in [place]. Pt. was upset about transfer due to it being far, it was explained to him that his preferred facilities had declined his admission. Pt became irritable thanked com writer but refused transfer to this facility and stated he no longer wanted to speak to com writer about this subject. Will relay info to CM and [place] for placement follow up
--- NOTE | 2019-08-02 17:00 | NUR ---
WOUND RE-EVALUATION: Patient received in a [place] Bed with an Atmo-Air 9000 mattress, awake, alert, and oriented. Patient is able to turn in bed independently. Yobani Score is a 17. Microbiology: Blood culture results 2 negative. MRSA screen results positive. Intrinsic factors that delay wound healing: Diabetes Mellitus, Chronic Obstructive Pulmonary Disease, Hypoalbuminemia. Extrinsic factors that delay wound healing: Decreased mobility. Wound Assessment: 1. Left Lower Extremity: Dry skin with hemosiderin staining, cool to touch. No edema. No odor, no drainage. Present on admission. 2. Right Lower Extremity: Dry skin with hemosiderin staining, cool to touch. No edema. No odor, no drainage. Present on admission. Recommend continue: Cleanse extremities with mild soap and water. Pat dry. Apply Eucerin cream to extremities. Perform site care twice a day. 3. Right lateral mid lower extremity: Chronic wound, present on admission. Wound bed has 100% brown scab. No odor, no drainage. Dry, stable. 4. Right lateral mid lower extremity, inferior to site 3: Three small chronic wounds, present on admission. Wound beds have 100% brown scabs. No odor, no drainage. Dry, stable. Three grouped wounds. Recommend continue: No dressings needed. Continue to monitor wound sites each shift. Contact wound care nurse if sites open or drain. Also recommend continue: Encourage and assist patient as needed with repositioning every 2 hours with pillow support and off-load pressure areas with pillows for pressure re-distribution. Offload, elevate and float bilateral heels with pillows. Perform skin care and monitor skin integrity Q shift.
[2019-08-02] MEDS ORDERED: WARFARIN SODIUM 4 MG TABLET PO ONE (18:00)
--- NOTE | 2019-08-02 18:49 | NUR ---
Notes- In bed, eating dinner. Denies any chest pain or shortness of breath. All needs meet through out shift. No distress noted.
--- NOTE | 2019-08-02 19:40 | NUR ---
ROUNDS PATIENT IN BED, WATCHING TV, VITALS STABLE, NO PAIN AT THIS TIME. ASSESSMENT DONE AND DOCUMENTED. SEE FLOWSHEET. NEEDS ATTENDED TO. SAFETY AND FALL MEASURES IN PLACED. CALL LIGHT PLACED WITHIN REACH.
[2019-08-02] MEDS: INSULIN GLARGINE 100 UNITS/ML 10 ML VIAL SQ SCH (21:12)
--- NOTE | 2019-08-02 21:14 | NUR ---
MEDICATION DUE MEDICATIONS GIVEN, TOLERATED WELL. WILL CONTINUE TO MONITOR.
--- NOTE | 2019-08-03 00:12 | NUR ---
PATIENT RESTING: Patient resting quietly. No acute distress noted. Vital signs within normal range.
[2019-08-03 00:29] VITALS: BP_SYST 129
[2019-08-03] MEDS ORDERED: FUROSEMIDE 20 MG/2 ML VIAL IVP SCH ×3 (01:15→18:30)
[2019-08-03] MEDS: LORazepam 1 MG TABLET PO PRN ×2 (01:26→23:45)
[2019-08-03] MEDS: IPRATROPIUM/ALBUTEROL SULFATE 3 ML AMPUL.NEB (DUONEB) INH SCH ×5 (03:00→19:00)
[2019-08-03] MEDS ORDERED: HYDROcodone/ACETAMIN 5-325 MG TAB (NORCO/ VICODIN) PO SCH ×2 (04:05→04:45)
--- NOTE | 2019-08-03 04:15 | NUR ---
DR. DIANE CONTRERAS HERE MAKING ROUNDS AND SAW PATIENT WITH NEW ORDERS. WILL CONTINUE TO MONITOR.
[2019-08-03] MEDS: metroNIDAZOLE 500 mg/NS 100 ML IV SCH ×3 (05:22→22:00)
[2019-08-03 05:57] LABS: ALBUMIN 2.6 g/dL (3.4-4.8); CALCIUM 7.9 mg/dL (8.4-11.0); CREATININE 1.61 mg/dL (0.55-1.30); POTASSIUM 4.4 mmol/L (3.5-5.1); TOTAL BILIRUBIN 0.5 mg/dL (0.0-1.0)
[2019-08-03] MEDS: INSULIN REGULAR, HUMAN 100 UNITS/ML, 10 ML VIAL (humuLIN R) SUBCUT PRN ×3 (06:26→22:45)
[2019-08-03 06:33] LABS: BASOPHILS % (AUTO) 0.6 % (0.0-2.0); EOSINOPHILS # (AUTO) 0.1 K/uL (0.0-0.4); EOSINOPHILS % (AUTO) 1.9 % (0.0-4.0); HEMATOCRIT 41.3 % (36-54); HEMOGLOBIN 13.3 g/dL (14.0-18.0); LYMPHOCYTES % (AUTO) 19.7 % (20.5-51.5); MEAN CORPUSCULAR HEMOGLOBIN 30 pg (27-31); MEAN CORPUSCULAR HGB CONC 32 % (32-36); MEAN CORPUSCULAR VOLUME 92 fL (79.0-98.0); MONOCYTES # (AUTO) 0.4 K/uL (0.0-1.0); NEUTROPHILS # (AUTO) 3.5 K/uL (1.8-7.7); NEUTROPHILS % (AUTO) 69.8 % (40.0-70.0); PLATELET COUNT (AUTO) 156 K/uL (130-430); RED BLOOD CELL COUNT(AUTO) 4.47 MIL/uL (4.2-6.2); RED CELL DISTRIBUTION WIDTH 18.2 % (9.0-15.0); WHITE BLOOD COUNT (AUTO) 5.1 K/uL (4.8-10.8)
--- NOTE | 2019-08-03 06:50 | NUR ---
CLOSING NOTES PATIENT RESTING COMFORTABLY IN BED, VITALS STABLE, NO PAIN AT THIS TIME. ALL NEEDS ATTENDED TO. CALL LIGHT PLACED WITHIN REACH.
--- NOTE | 2019-08-03 07:30 | NUR ---
OPENING NOTES: RECEIVED PATIENT FROM PIN MACHINE OPERATOR NURSE. PATIENT IS AWAKE AND ALERT x4 LAYING DOWN IN BED. PATIENT DENIES ANY PAIN AT THE MOMENT. NO SIGNS OF DISTRESS OR SHORTNESS OF BREATH NOTED. IV SITE IS PATENT WITH NO SIGNS OF INFILTRATION NOTED. PATIENT IS TOLERATING OXYGEN ON 2 L NASAL CANNULA. PATIENT IN STABLE CONDITION. SAFETY, FALL, ASPIRATION AND CONTACT PRECAUTIONS ARE IN PLACE. BED LOCKED IN LOWEST POSITION WITH CALL LIGHT IN REACH. WILL CONTINUE TO MONITOR PATIENT FOR ANY CHANGES.
[2019-08-03 08:00] VITALS: BP_SYST 142
[2019-08-03] MEDS: PANTOPRAZOLE SODIUM 40 MG/VIAL (PROTONIX) IVP SCH (09:17)
[2019-08-03] MEDS: FUROSEMIDE 40 MG TABLET PO SCH (09:18)
[2019-08-03] MEDS: cefTRIAXone 1 GM IVPB PREMIX 50 ML IV SCH (09:18)
[2019-08-03] MEDS: CARVEDILOL 3.125 MG TABLET (COREG) PO SCH ×2 (09:19→21:00)
[2019-08-03] MEDS: ALLOPURINOL 100 MG TABLET (ZYLOPRIM) PO SCH (09:19)
[2019-08-03] MEDS: EMOLLIENT COMBINATION NO.73 78 GM CREAM..G. TP SCH ×2 (09:19→21:00)
[2019-08-03] MEDS: SIMVASTATIN 40 MG TABLET PO SCH (09:19)
[2019-08-03] MEDS: ASPIRIN 81 MG TAB.CHEW PO SCH (09:19)
[2019-08-03] MEDS: GABAPENTIN 300 MG CAPSULE PO SCH ×2 (09:19→22:25)
[2019-08-03 09:38] LABS: INR 2.3 (0.80-1.20); PROTHROMBIN TIME 22.5 SECS (9.5-12.5)
--- NOTE | 2019-08-03 10:05 | NUR ---
RN ROUNDS: PATIENT IS AWAKE AND ALERT x4 LAYING DOWN IN BED ASLEEP. NO SIGNS OF DISTRESS OR SHORTNESS OF BREATH NOTED. PATIENT IN STABLE CONDITION. WILL CONTINUE TO MONITOR PATIENT FOR ANY CHANGES.
--- NOTE | 2019-08-03 12:20 | NUR ---
RN ROUNDS: PATIENT IS ASLEEP LAYING DOWN IN BED. NO SIGNS OF DISTRESS OR SHORTNESS OF BREATH NOTED. IV SITE IS PATENT WITH NO SIGNS OF INFILTRATION NOTED. PATIENT IN STABLE CONDITION. WILL CONTINUE TO MONITOR PATIENT FOR ANY CHANGES.
--- NOTE | 2019-08-03 14:15 | NUR ---
RN ROUNDS: PATIENT IS AWAKE AND ALERT x4 LAYING DOWN IN BED. PATIENT DENIES ANY PAIN AT THE MOMENT. NO SIGNS OF DISTRESS OR SHORTNESS OF BREATH NOTED. A CUP OF ICE CUBES WERE PROVIDED TO THE PATIENT. PATIENT IN STABLE CONDITION. WILL CONTINUE TO MONITOR PATIENT FOR ANY CHANGES.
--- NOTE | 2019-08-03 16:13 | NUR ---
RN ROUNDS: PATIENT IS ASLEEP LAYING DOWN IN BED. NO SIGNS OF DISTRESS OR SHORTNESS OF BREATH NOTED. PATIENT IN STABLE CONDITION. SAFETY, FALL, ASPIRATION, AND CONTACT PRECAUTIONS ARE IN PLACE. BED LOCKED IN LOWEST POSITION WITH CALL LIGHT IN REACH. WILL CONTINUE TO MONITOR PATIENT FOR ANY CHANGES.
[2019-08-03 16:18] VITALS: BP_SYST 141
--- NOTE | 2019-08-03 16:22 | NUR ---
Social Service Note: PICKLE WATER PUMP OPERATOR met with pt at bedside. PICKLE WATER PUMP OPERATOR spoke with pt about the SNF bed that pt's insurance found for him; pt states that [place] is too far away and he will not go there. PICKLE WATER PUMP OPERATOR spoke with pt about his plans if he was discharged; pt states that he has somewhere safe to go; pt states that his truck is in the parking lot and he will go to his truck when discharged. Pt stated that he is very upset with his physician and feels that his physician has not evaluated him; PICKLE WATER PUMP OPERATOR will forward pt's concerns to pt experience coordinator. PICKLE WATER PUMP OPERATOR spoke with pt's nurse and confirmed there is no order for pt to DC at this time. Pt states that he is still having pain in his legs. PICKLE WATER PUMP OPERATOR will remain available for support and will follow up as needed.
[2019-08-03] MEDS ORDERED: WARFARIN SODIUM 4 MG TABLET PO ONE (18:00)
--- NOTE | 2019-08-03 18:44 | NUR ---
CLOSING NOTES: PATIENT IS AWAKE AND ALERT x4 LAYING DOWN IN BED. PATIENT DENIES ANY PAIN AT THE MOMENT. NO SIGNS OF DISTRESS OR SHORTNESS OF BREATH NOTED. IV SITE IS PATENT WITH NO SIGNS OF INFILTRATION NOTED. PATIENT IS TOLERATING OXYGEN ON ROOM AIR. PATIENT IN STABLE CONDITION. SAFETY, FALL, ASPIRATION AND CONTACT PRECAUTIONS REMAINED IN PLACE THROUGHOUT THE SHIFT. BED LOCKED IN LOWEST POSITION WITH CALL LIGHT IN REACH. WILL ENDORSE PATIENT CARE TO ONCOMING SENIOR DATA MINING ANALYST NURSE.
[2019-08-03] MEDS: MINERAL OIL 30 ML UDC PO SCH (21:00)
[2019-08-03] MEDS: INSULIN GLARGINE 100 UNITS/ML 10 ML VIAL SQ SCH (22:35)
[2019-08-04] MEDS ORDERED: HYDROcodone/ACETAMIN 5-325 MG TAB (NORCO/ VICODIN) PO PRN (01:00)
[2019-08-04] MEDS: ALBUTEROL SULFATE 0.083% 2.5 MG/3 ML VIAL.NEB INH PRN (01:10)
[2019-08-04] MEDS: guaiFENesin 200 MG/10 ML UDC PO PRN (01:14)
[2019-08-04 01:25] VITALS: BP_SYST 133
[2019-08-04] MEDS: metroNIDAZOLE 500 mg/NS 100 ML IV SCH (06:00)
--- NOTE | 2019-08-04 07:30 | NUR ---
INITIAL NOTE PT RESTING QUIETLY IN BED, NO ACUTE DISTRESS NOTED, BREATHING EVEN AND UNLABORED. IV SALINE LOCKED. CALL LIGHT WITHIN REACH, BED IN LOW AND LOCKED POSITION WITH BED ALARM ON.
[2019-08-04] MEDS: FUROSEMIDE 40 MG TABLET PO SCH (09:11)
[2019-08-04] MEDS: SIMVASTATIN 40 MG TABLET PO SCH (09:12)
[2019-08-04] MEDS: CARVEDILOL 3.125 MG TABLET (COREG) PO SCH (09:12)
[2019-08-04] MEDS: PANTOPRAZOLE SODIUM 40 MG/VIAL (PROTONIX) IVP SCH (09:12)
[2019-08-04] MEDS: ASPIRIN 81 MG TAB.CHEW PO SCH (09:12)
[2019-08-04] MEDS: ALLOPURINOL 100 MG TABLET (ZYLOPRIM) PO SCH (09:12)
[2019-08-04] MEDS: GABAPENTIN 300 MG CAPSULE PO SCH (09:12)
[2019-08-04] MEDS: MINERAL OIL 30 ML UDC PO SCH (09:12)
[2019-08-04] MEDS: cefTRIAXone 1 GM IVPB PREMIX 50 ML IV SCH (09:13)
--- NOTE | 2019-08-04 09:30 | NUR ---
MORNING MEDICATIONS PT REFUSING IV ANTIBIOTICS AND PROTONIX. EDUCATED PT ON PURPOSE OF MEDICATION. PT VERBALIZED UNDERSTANDING. PT REFUSED.
--- NOTE | 2019-08-04 10:00 | NUR ---
AMA: Patient does not wish to proceed with medical care recommended by DR. GOEL. Patient given information related to possible complications, up to and including , which could occur as a result of leaving hospital at this time. Patient verbalizes understanding of risks involved leaving against medical advice. Patient has signed AMA form. Iv catheter removed, catheter intact, no bleeding. All home medications with pt. Request for health care records form given to pt. All belongings with pt. Pt escorted by security via wheelchair to [facility] parking lot.
[2019-08-04 10:01] LABS: INR 2.1 (0.80-1.20); PROTHROMBIN TIME 20.8 SECS (9.5-12.5)
[2019-08-04] MEDS: IPRATROPIUM/ALBUTEROL SULFATE 3 ML AMPUL.NEB (DUONEB) INH SCH (10:38)
[2019-08-04 10:48] VITALS: BP_SYST 101
[2019-08-04] MEDS ORDERED: WARFARIN SODIUM 5 MG TABLET PO SCH (18:00)
--- NOTE | 2019-08-08 11:01 | NUR ---
PHYSICAL THERAPY CO-SIGN The Physical Therapy Progress Notes documented by Steelscope Operator have been reviewed. Reviewed/Co-Signed by: Nahun Alejandre PT Documentation Done by: RICH TORREZ PTA Addendum: 08/08/19 at 1103 by Nahun Alejandre PT Amended: Links added.
--- NOTE | 2019-08-08 11:02 | NUR ---
PHYSICAL THERAPY CO-SIGN The Physical Therapy Progress Notes documented by Senior Power Scheduler have been reviewed. Reviewed/Co-Signed by: Nahun Alejandre PT Documentation Done by: RICH TORREZ PTA Addendum: 08/08/19 at 1103 by Nahun Alejandre PT Amended: Links added.
== END 2019-08-04 10:00 | disposition left against medical advice (07) | DRG 190 ==
LOC: SED 23:40 → STU 07-26 04:08 → SMU 08-01 14:34
PROVIDERS: ADMIT Internal Medicine Hospice and Palliative Medicine; ATTEND Internal Medicine Hospice and Palliative Medicine
DX: I21.A1 Myocardial infarction type 2 (principal); N17.0 Acute kidney failure with tubular necrosis; E11.00 Type 2 diabetes mellitus with hyperosmolarity without nonketotic hyperglycemic-hyperosmolar coma (NKHHC); E11.51 Type 2 diabetes mellitus with diabetic peripheral angiopathy without gangrene; E11.42 Type 2 diabetes mellitus with diabetic polyneuropathy; E66.01 Morbid (severe) obesity due to excess calories; I42.0 Dilated cardiomyopathy; I48.20 Chronic atrial fibrillation, unspecified; R65.10 Systemic inflammatory response syndrome (SIRS) of non-infectious origin without acute organ dysfunction; E87.5 Hyperkalemia; K52.9 Noninfective gastroenteritis and colitis, unspecified; I50.40 Unspecified combined systolic (congestive) and diastolic (congestive) heart failure; K76.0 Fatty (change of) liver, not elsewhere classified; E11.65 Type 2 diabetes mellitus with hyperglycemia; K29.70 Gastritis, unspecified, without bleeding; K27.9 Peptic ulcer, site unspecified, unspecified as acute or chronic, without hemorrhage or perforation; J44.1 Chronic obstructive pulmonary disease with (acute) exacerbation; Z53.29 Procedure and treatment not carried out because of patient's decision for other reasons; I25.10 Atherosclerotic heart disease of native coronary artery without angina pectoris; M25.552 Pain in left hip; M25.551 Pain in right hip; W18.30XA Fall on same level, unspecified, initial encounter; Y92.238 Other place in hospital as the place of occurrence of the external cause; Y93.89 Activity, other specified; Y99.8 Other external cause status; Z86.73 Personal history of transient ischemic attack (TIA), and cerebral infarction without residual deficits; Z95.0 Presence of cardiac pacemaker; Z90.49 Acquired absence of other specified parts of digestive tract; Z83.3 Family history of diabetes mellitus; Z79.4 Long term (current) use of insulin; Z59.0 Homelessness; Z79.01 Long term (current) use of anticoagulants; Z88.8 Allergy status to other drugs, medicaments and biological substances; Z68.28 Body mass index [BMI] 28.0-28.9, adult
CPT/HCPCS: 36415; 71045; 73521; 74018; 74249; 76700-TC; 80053; 80061; 80074; 81003; 82550-TC; 82962; 83605; 83690-TC; 83880; 84443-TC; 84484; 85007; 85025; 85027; 85610-TC; 85730-TC; 87040-TC; 87081; 93005; 93306; 93970; 94640; 94760; 96374; 96375; 97110-GP; 97112-GP; 97116-GP; 99285; C9113; G0378; J0696; J1200; J1650; J1815; J1940; J2060; J2270; J2405; J3490; J7040; J7613